=== PATIENT | male | born 1965 | race Caucasian/White ===

== ENCOUNTER 2020-05-03 13:34 | Inpatient (IN) | payer MEDICARE, SELFPAY ==
[2020-05-03] VITALS (12 sets, daily range): BP systolic 122–200; BP diastolic 65–81; PULSE 18–100; RESP 10–98; TEMP 36.6–37.6; O2SAT 73–99; BMI 37.2
--- NOTE | ~2020-05-03 | XR_ITS ---
EXAMINATION: XR hand LT min 3V INDICATION: Left hand pain TECHNIQUE: Three views of the left hand are obtained. COMPARISON: None available FINDINGS: There is soft tissue swelling of the second and third fingers. No fracture is identified. 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 Mild to moderate osteoarth ritis is also noted at the triscaphe and first carpometacarpal joints. IMPRESSION: 1. Soft tissue swelling of the second and third fingers without evidence of acute osseous abnormality . Reviewed, dictated and finalized at location B. IMPRESSION: 1. Soft tissue swelling of the second and third fingers without evidence of acu te osseous abnormality.
--- NOTE | 2020-05-03 13:50 | ED.ANIMALBIT ---
HPI - Animal Bite General Chief Complaint: Animal Bite Stated Complaint: cat bite Time Seen by Provider: 05/03/20 13:50 Source: patient Mode of arrival: ambulatory Limitations: no limitations History of Present Illness HPI narrative: Patient is a 54-year-old male with a history of hypertension, diabetes who presents for evaluation of swollen left hand. Patient reports he was bitten by a cat early on morning, this cat is a feral cat that had recently been immunized and spayed. The cat did get rabies vaccine over a week ago. Patient was letting the cat out of the car it was in, the cat then bit his left hand. Patient reports swelling and pain has been worsening since that time. Patient's primary care physician put the patient on Keflex. Patient's tetanus is not up-to-date. He reports increased pain in the second digit of the left hand. Mild numbness. There is positive redness and swelling. Patient denies fever or chills. He reports radiating pain up into his left forearm. Patient is right-hand dominant. Related Data Home Medications Medication Instructions Recorded Confirmed atorvastatin 05/03/20 buprenorphine-naloxone [Suboxone] film 05/03/20 clindamycin HCl 05/03/20 clonidine HCl 05/03/20 diltiazem HCl PO 05/03/20 finasteride mg 05/03/20 metformin mg 05/03/20 pregabalin 05/03/20 testosterone cypionate mg 05/03/20 Allergies Allergy/AdvReac Type Severity Reaction Status Date / Time Penicillins Allergy Mild Rash Verified 05/03/20 13:35 Review of Systems Review of Systems: Narrative: CONSTITUTIONAL: Denies fever CARDIOVASCULAR: Denies chest pain RESPIRATORY: Denies cough or dyspnea. GASTROINTESTINAL: Denies abdominal pain SKIN: Denies rash MUSCULOSKELETAL: Denies back pain NEUROLOGIC: Denies headache PMF Past Medical History Medical History (Updated 05/03/20 @ 14:55 by Leah Mccormick MD) Diabetes Hypertension Surgical History Surgical History (Updated 05/03/20 @ 14:17 by Leah Mccormick MD) H/O arthroscopy of left knee History of lumbar surgery Social History Social History Gender identity (if verbalized by the patient): Male Exam Narrative: Exam Narrative: GENERAL: Awake, alert, conversant HEAD: Normocephalic, atraumatic. EYES: PERRLA and EOMI. ENT: Nares clear, no rhinorrhea or epistaxis. Mucous membranes moist. NECK: Supple. CHEST: No respiratory distress, breathing even and non labored HEART: Regular rate, sinus rhythm ABDOMEN:Non distended, non tender EXTREMITIES: Decreased range of motion in the left hand due to pain. There is swelling of the left palm thenar eminence, thumb, second digit, first metacarpal area is tender, edematous, indurated, erythematous. Patient has difficulty and pain with flexion. There is no circumferential edema or erythema at this point. Radial pulses 2+. Intact sensation median, ulnar, radial nerve distribution. Several scattered scratch munoz and abrasions to the left hand. No areas of purulent discharge. SKIN: Warm, dry, no rash. NEURO:No focal deficits. Alert and oriented x3 Course Vital Signs Vital signs: Vital Signs Temperature 36.8 C 05/03/20 13:36 Pulse Rate 100 05/03/20 13:36 Respiratory Rate 16 05/03/20 13:36 Blood Pressure 200/81 H 05/03/20 13:36 Pulse Oximetry 98 05/03/20 13:36 Temperature 36.8 C 05/03/20 13:36 Pulse Rate 100 05/03/20 13:36 Respiratory Rate 16 05/03/20 13:36 Blood Pressure 200/81 H 05/03/20 13:36 Pulse Oximetry 98 05/03/20 13:36 MDM - Animal Bite MDM Narrative Medical decision making narrative: Patient presented for evaluation of cat bite to the left hand. At the time of initial assessment, ABCs are intact, vital signs notable for hypertension in which the patient has a history of. She is otherwise asymptomatic in this regard. He has significant edema, erythema, pain of the thenar eminence of the left hand, edema, erythema of the second digit, espec
[2020-05-03] MEDS: metroNIDAZOLE 500 MG/ISO 100ML 500 MG/100 ML BAG 100 MG IVPB ×2 (14:22→20:57)
[2020-05-03 14:29] LABS: Basophils Percent Auto 0.3 % (0.2-1.2); Eosinophils Absolute Auto 0.2 K/mm3 (0-0.3); Eosinophils Percent Auto 2.3 % (0-4.4); Hematocrit 40.4 % (42.0-52.0); Hemoglobin 13.8 g/dL (14.0-18.0); Immature Granulocyte Absolute 0.04 K/mm3 (0.00-0.031); Immature Granulocyte Percent A 0.4 % (0-0.5); Lymphocytes Absolute Auto 1.19 K/mm3 (0.9-3.2); Lymphocytes Percent Auto 12.2 % (18.3-44.2); Mean Corpuscular HGB Conc 34.2 g/dl (32-36); Mean Corpuscular Hemoglobin 29.1 pg (26-34); Mean Corpuscular Volume 85.1 fl (80-100); Mean Platelet Volume 10.2 fl (7.4-10.4); Monocytes Absolute Auto 1.1 K/mm3 (0.1-0.6); Monocytes Percent Auto 10.8 % (2.6-8.5); Neutrophils Absolute Auto 7.2 K/mm3 (1.3-6.7); Platelet Count Result 175 k/mm3 (150-375); Red Blood Count 4.75 M/mm3 (4.6-6.20); Red Cell Distribution Width 14.1 % (11.5-14.5); White Blood Count 9.7 K/mm3 (4.5-10.0)
[2020-05-03 14:43] LABS: Anion Gap 13.8 mmol/L (7-16); Blood Urea Nitrogen 16 mg/dL (9-20); CRP 4.2 mg/dL (<1.0); Calcium 8.9 mg/dL (8.4-10.2); Carbon Dioxide 26 mmol/L (22-30); Chloride 99 mmol/L (98-107); Estimated CRCL calculation 124 ml/min; Estimated Glomerular Filt Rate > 60; Glucose 212 mg/dL (75-110); Potassium 3.8 mmol/L (3.4-5.0); Sodium 135 mmol/L (137-145)
[2020-05-03] MEDS: MORPHINE SULFATE 4 MG/ML INJ IV PUSH (14:55)
[2020-05-03] MEDS: ONDANSETRON INJ 4 MG/2 ML VIAL IV PUSH (14:55)
[2020-05-03] MEDS: SODIUM CHLORIDE 0.9% IV 1,000 ML 999 ML IV CONT (14:56)
[2020-05-03 15:02] LABS: Erythrocyte Sedimentation Rate 16 mm/hr (0-20)
[2020-05-03] MEDS: TETANUS,DIPHTHERIA,AC PERTUSSIS ADULT (0.5 ML) BOOSTRIX IM (15:57)
--- NOTE | 2020-05-03 16:30 | PC.NURSE ---
This patient, Zachery Cruz, was admitted to 2 Medical Room 248-. Patient/family oriented to hospital policies and general routines including ID bracelet, bed and alarms, visiting hours, pain management, procedures, bathroom and other care routines, personal items, smoking policy, room service/diet, and visiting hours. Valuables list has been completed. Information on how to activate the Rapid Response Team has been discussed. Patient/Family are encouraged to report perceived risks to care and to ask questions if they do not understand what they are told or what they should do.
[2020-05-03] MEDS: SODIUM CHLORIDE 0.9% IV 1,000 ML 125 ML IV CONT (17:13)
[2020-05-03] MEDS: LACTATED RINGERS 1,000 ML 30 ML IV CONT (18:00)
--- NOTE | 2020-05-03 18:00 | WPDANESEPPF ---
Anes - Initial Pre Proc Eval Procedure: Operation Date: 05/03/20 18:30 Proposed Procedures p I&D Debride Upper Extremity Hand(Left) - Alexis Martinez MD Date/Time: 05/03/20 18:00 Surgeon: Lynn Hung MD Pre Op Diagnosis: Cellulitis Patient Data Age: 54 Gender: M Height: 6 ft Weight: 124.4 kg Last Vital Signs Temp 36.8 C 05/03/20 16:50 Pulse 75 05/03/20 16:50 Resp 17 05/03/20 16:50 BP 153/72 H 05/03/20 16:50 Pulse Ox 96 05/03/20 16:50 Allergies Allergy/AdvReac Type Severity Reaction Status Date / Time Penicillins Allergy Mild Rash Verified 05/03/20 16:48 Home Medications Medication Instructions Recorded Confirmed Type atorvastatin [Lipitor] 10 mg PO DAILY 05/03/20 05/03/20 History buprenorphine-naloxone [Suboxone] 2 film SUBLINGUAL BID 05/03/20 05/03/20 History clindamycin HCl 05/03/20 History clonidine HCl 0.1 mg PO TID 05/03/20 05/03/20 History diltiazem HCl 300 mg PO DAILY 05/03/20 05/03/20 History finasteride 5 mg PO DAILY 05/03/20 05/03/20 History metformin 1,000 mg PO BID 05/03/20 05/03/20 History pregabalin 100 mg PO BID 05/03/20 05/03/20 History testosterone cypionate 200 mg IM WEEKLY 05/03/20 05/03/20 History Laboratory Tests 05/03/20 05/03/20 14:18 14:18 WBC 9.7 K/mm3 K/mm3 (4.5-10.0) RBC 4.75 M/mm3 M/mm3 (4.6-6.20) Hgb 13.8 g/dL L g/dL (14.0-18.0) Hct 40.4 % L % (42.0-52.0) MCV 85.1 fl fl (80-100) MCH 29.1 pg pg (26-34) MCHC 34.2 g/dl g/dl (32-36) RDW 14.1 % % (11.5-14.5) Plt Count 175 k/mm3 k/mm3 (150-375) MPV 10.2 fl fl (7.4-10.4) Immature Gran % (Auto) 0.4 % % (0-0.5) Neut % (Auto) 74.0 % H % (45.5-73.1) Lymph % (Auto) 12.2 % L % (18.3-44.2) [place] % (Auto) 10.8 % H % (2.6-8.5) Eos % (Auto) 2.3 % % (0-4.4) Baso % (Auto) 0.3 % % (0.2-1.2) Lymph # (Auto) 1.19 K/mm3 K/mm3 (0.9-3.2) [place] # (Auto) 1.1 K/mm3 H K/mm3 (0.1-0.6) Eos # (Auto) 0.2 K/mm3 K/mm3 (0-0.3) Baso # (Auto) 0.0 K/mm3 K/mm3 (0.0-0.1) Abs Immat Gran (auto) 0.04 K/mm3 H K/mm3 (0.00-0.031) Absolute Neuts (auto) 7.2 K/mm3 H K/mm3 (1.3-6.7) Absolute Nucleated RBC 0.0 K/mm3 K/mm3 (0.0-0.012) Nucleated RBC % 0.0 % % (0.0-0.2) ESR 16 mm/hr mm/hr (0-20) Sodium 135 mmol/L L mmol/L (137-145) Potassium 3.8 mmol/L mmol/L (3.4-5.0) Chloride 99 mmol/L mmol/L (98-107) Carbon Dioxide 26 mmol/L mmol/L (22-30) Anion Gap 13.8 mmol/L mmol/L (7-16) BUN 16 mg/dL mg/dL (9-20) Creatinine 0.80 mg/dL mg/dL (0.7-1.3) Estim Creat Clear Calc 124 ml/min ml/min Estimated GFR > 60 (59 - ) Glucose 212 mg/dL H mg/dL (75-110) Calcium 8.9 mg/dL mg/dL (8.4-10.2) C-Reactive Protein 4.2 mg/dL H mg/dL (<1.0) Patient hx anesthesia problems: none Family hx anesthesia problems: none PMFSH Past Medical History Medical History Chronic pain syndrome Diabetes Hyperlipidemia Hypertension RUTH (obstructive sleep apnea) Surgical History Surgical History H/O arthroscopy of left knee History of lumbar surgery Family History Family History Grandparent Acute myocardial infarction Cerebrovascular accident Mother Asthma Chronic obstructive pulmonary disease Hypertension Grandparent No problems noted. Father Hypertension Social History Social History Smoking packs per day: 1 Smoking cigarettes per day: 20.0 Years smoked: 20 Smoking pack-years: 20.00 Smoking status: Former smoker Tobacco type: cigarettes Alcohol intake: never Substance use: never S
--- NOTE | 2020-05-03 18:05 | PC.NURSE ---
To OR per bed, IV intact. Report given to LION Fuentes.
--- NOTE | 2020-05-03 18:16 | WPDCN ---
Assessment and Plan Additional Plan Acute cat bite to left index and hand. Rapid onset of deep infection. To OR for I&D. HPI Data of Consult Date/Time: 05/03/20 18:16 Requesting Physician: Lynn Hung MD Primary Care Provider: Maikel Roblero, MD Consult Narrative Narrative: Zachery Cruz is a 54 year old male bitten by own cat around 40 hours ago. Hand has swelled and become very swollen and stiff and painful. Has several puncture wounds mostly on the radial hand and index finger. Flexor aspect is erythematous and very tender.Says worst site early on was at dorsal PIPJ. He is very anxious and did not seem to hear me as I described possible complications and possible length of hospital stay. Says he is not known to be allergic to PCN. Has never had it. Mother was allergic to PCN. Has been started on Rocephin and Flagyl. [facility] Past Medical History Medical History Chronic pain syndrome Diabetes Hyperlipidemia Hypertension RUTH (obstructive sleep apnea) Surgical History Surgical History H/O arthroscopy of left knee History of lumbar surgery Family History Family History Grandparent Acute myocardial infarction Cerebrovascular accident Mother Asthma Chronic obstructive pulmonary disease Hypertension Grandparent No problems noted. Father Hypertension Social History Social History Smoking packs per day: 1 Smoking cigarettes per day: 20.0 Years smoked: 20 Smoking pack-years: 20.00 Smoking status: Former smoker Tobacco type: cigarettes Alcohol intake: never Substance use: never Substance use type: does not use Gender identity (if verbalized by the patient): Male Spiritual care concerns: No Meds Home Medications and Allergies Home Medications Medication Instructions Recorded Confirmed Type atorvastatin [Lipitor] 10 mg PO DAILY 05/03/20 05/03/20 History buprenorphine-naloxone [Suboxone] 2 film SUBLINGUAL BID 05/03/20 05/03/20 History clindamycin HCl 05/03/20 History clonidine HCl 0.1 mg PO TID 05/03/20 05/03/20 History diltiazem HCl 300 mg PO DAILY 05/03/20 05/03/20 History finasteride 5 mg PO DAILY 05/03/20 05/03/20 History metformin 1,000 mg PO BID 05/03/20 05/03/20 History pregabalin 100 mg PO BID 05/03/20 05/03/20 History testosterone cypionate 200 mg IM WEEKLY 05/03/20 05/03/20 History Allergies Allergy/AdvReac Type Severity Reaction Status Date / Time Penicillins Allergy Mild Rash Verified 05/03/20 16:48 Vital Signs Vital Signs - 24 hr 05/03/20 13:36 05/03/20 16:00 05/03/20 16:50 Temperature 36.8 C 36.8 C Pulse Rate 100 66 75 Respiratory Rate 16 17 17 Blood Pressure 200/81 H 155/80 H 153/72 H Pulse Oximetry 98 97 96 05/03/20 18:00 Temperature 37.6 C H Pulse Rate 81 Respiratory Rate 16 Blood Pressure 137/75 Pulse Oximetry 96 Results Labs CBC & Chem 7: 05/03/20 14:18 05/03/20 14:18 Labs: Short CBC 05/03/20 Range/Units 14:18 WBC 9.7 (4.5-10.0) K/mm3 Hgb 13.8 L (14.0-18.0) g/dL Hct 40.4 L (42.0-52.0) % Plt Count 175 (150-375) k/mm3 [facility] 05/03/20 14:18 Sodium 135 L Potassium 3.8 Chloride 99 Carbon Dioxide 26 BUN 16 Creatinine 0.80 Glucose 212 H Calcium 8.9
--- NOTE | 2020-05-03 18:34 | PC.NURSE ---
On 05/03/20, the license-pending RN, Cathryn Crisostomo, provided care and completed [employer] documentation on this patient. I have reviewed the license-pending RN's documentation and agree with the findings.
[2020-05-03] MEDS: LIDO 1%/EPINEPHRINE 1:100,000 20 ML VIAL INFILTRATE (18:39)
--- NOTE | 2020-05-03 19:17 | PM.OP ---
Procedure Note - Brief Procedure Note - Brief Date of procedure: 05/03/20 Pre-op diagnosis: Cellulitis Post-op diagnosis: other (Flexor septic tenosynovitis left index finger) Procedure performed: I&D flexor tenosynovitis left index finger. Anesthesia: GETA Surgeon: Alexis Martinez MD Estimated blood loss (mL): 3 Tourniquet time (min): 20 Drains: No Packing: Yes (5 x 1 inch.) Pathology: yes (Aerobic and anaerobic cultures.) Complications: No immediate complications Condition: stable Disposition: PACU
--- NOTE | 2020-05-03 19:23 | P.OP_ITS ---
Procedure Note - Detailed Date of procedure: 05/03/20 Pre-op diagnosis: Cellulitis Post-op diagnosis: other ( septic flexor tenosynovitis left index finger) Procedure performed: drainage of septic flexor tenosynovitis left index finger Description of procedure: The patient's hand was marked in the holding area. He had just been admitted to the hospital on the [facility] floor after being seen in the ER with a swollen left hand. This stems from cat bites sustained approximately 30 hours prior. His hand had become swollen and he was unable to flex the index finger.There were multiple puncture sites on the index and middle finger . This gentleman is diabetic and has hypertension but HAs no recent tobacco use. He stated that he was allergic to penicillin and he was given Rocephin and Flagyl in the emergency room. He later stated to me that he has never had Penicillin, that it was his mother who was allergic to penicillin. He was very anxious in the holding area when I 1st met him. I tried to explain to him possible complications for this type of injury and the likelihood that he would spend a few days in the hospital on may need to come back to surgery. It seemed to me that he comprehend did very little of that. He was taken to the operating room where he was placed supine on the operating table. A time-out was held and confirmed. He was given general anesthesia. The hand and forearm were prepped and draped in the usual fashion. The tourniquet was inflated to 250 mmHg. No local anesthetic was utilized. We examined the 2 sites that he complained of the most which were the index proximal interphalangeal and the index metacarpophalangeal joint from the dorsal aspect. Both the sites were incised longitudinally and the soft tissue and the extensor tendon identified. We found no pus in the sites. His other major complaint was that he could not flex his finger. We supinated the hand and made an incision diagonally crossing the proximal interphalangeal joint passing through 1 of the bites. Dissection to the flexor tendon sheath and just into the sheath at the C3 naz revealed cloudy fluid. A 2nd incision was made diagonally across the metacarpophalangeal flexion crease. There was no cloudy fluid identified there the flexor tendon and the sheath appeared to be in good shape. Cultures for aerobes and anaerobes were taken from the more distal incision We irrigated this with bacitracin solution. We were then able to insert a 16 gauge Angiocath into the flexor tendon sheath and irrigated copiously through that. We did not irrigate proximal to the A1 naz. We did irrigate distally beneath the A4 naz.Each of these wounds was dressed with a strip of quarter- inch iodoform gauze, a bulky bandage covered the those. The patient was discharged from the operating room in stable condition Surgeon: Alexis Martinez MD
--- NOTE | 2020-05-03 19:44 | SUR.PHASEI ---
1946 [facility] FAXED FLOOR NOTIFIED
--- NOTE | 2020-05-03 20:25 | PC.NURSE ---
PT RETURNED FROM OR. A&OX 3 DRESSING INTACT TO LEFT HAND
[2020-05-03] MEDS: KETOROLAC 15 MG/ML VIAL (*BKC) IV PUSH (20:50)
[2020-05-03] MEDS: oxyCODONE/ACETAMINOPHEN 5-325 MG TABLET 1 TABLET PO (22:06)
[2020-05-04 03:03] VITALS: BP 139/71; PULSE 16; RESP 97; TEMP 36.8; O2SAT 65
[2020-05-04] MEDS: metroNIDAZOLE 500 MG/ISO 100ML 500 MG/100 ML BAG 100 MG IVPB ×2 (03:03→08:20)
[2020-05-04] MEDS: oxyCODONE/ACETAMINOPHEN 5-325 MG TABLET 1 TABLET PO ×4 (05:06→20:27)
[2020-05-04 05:25] LABS: Basophils Percent Auto 0.3 % (0.2-1.2); Eosinophils Absolute Auto 0.1 K/mm3 (0-0.3); Eosinophils Percent Auto 0.9 % (0-4.4); Hematocrit 37.8 % (42.0-52.0); Hemoglobin 12.6 g/dL (14.0-18.0); Immature Granulocyte Absolute 0.03 K/mm3 (0.00-0.031); Immature Granulocyte Percent A 0.3 % (0-0.5); Lymphocytes Absolute Auto 1.58 K/mm3 (0.9-3.2); Lymphocytes Percent Auto 16.7 % (18.3-44.2); Mean Corpuscular HGB Conc 33.3 g/dl (32-36); Mean Corpuscular Hemoglobin 28.8 pg (26-34); Mean Corpuscular Volume 86.3 fl (80-100); Mean Platelet Volume 10.3 fl (7.4-10.4); Monocytes Absolute Auto 1.3 K/mm3 (0.1-0.6); Monocytes Percent Auto 13.2 % (2.6-8.5); Neutrophils Absolute Auto 6.5 K/mm3 (1.3-6.7); Neutrophils Percent Auto 68.6 % (45.5-73.1); Platelet Count Result 157 k/mm3 (150-375); Red Blood Count 4.38 M/mm3 (4.6-6.20); Red Cell Distribution Width 14.4 % (11.5-14.5); White Blood Count 9.5 K/mm3 (4.5-10.0)
[2020-05-04 05:39] LABS: Anion Gap 8.7 mmol/L (7-16); Blood Urea Nitrogen 14 mg/dL (9-20); Calcium 8.3 mg/dL (8.4-10.2); Carbon Dioxide 29 mmol/L (22-30); Chloride 101 mmol/L (98-107); Estimated CRCL calculation 113 ml/min; Estimated Glomerular Filt Rate > 60; Glucose 124 mg/dL (75-110); Potassium 3.7 mmol/L (3.4-5.0); Sodium 135 mmol/L (137-145)
[2020-05-04 06:30] VITALS: BP 146/69; PULSE 73; RESP 18; TEMP 36.7; O2SAT 95
[2020-05-04 07:40] LABS: Glucose Point of Care 118 (65-105)
[2020-05-04 07:40] LABS: Glucose Point of Care 98 (65-105)
--- NOTE | 2020-05-04 07:55 | P.PNAN_ITS ---
Anes - Prog Note Post-Op Date/Time: 05/04/20 07:55 Cardiovascular status: normal Respiratory status: normal Airway patency: baseline Mental status: baseline Post-Op hydration status: normal Vital Signs: Last Vital Signs Temp 36.7 C 05/04/20 06:30 Pulse 73 05/04/20 06:30 Resp 18 05/04/20 06:30 BP 146/69 H 05/04/20 06:30 Pulse Ox 95 05/04/20 06:30 I/O: Intake & Output 05/03/20 05/03/20 05/04/20 15:59 23:59 07:59 Intake Total 1150 1200 650 Output Total 300 1550 Balance 1150 900 -900 Laboratory Tests 05/04/20 04:59 05/04/20 04:59 05/03/20 05/03/20 05/03/20 14:18 14:18 18:01 WBC 9.7 RBC 4.75 Hgb 13.8 L Hct 40.4 L MCV 85.1 MCH 29.1 MCHC 34.2 RDW 14.1 Plt Count 175 MPV 10.2 Immature Gran % (Auto) 0.4 Neut % (Auto) 74.0 H Lymph % (Auto) 12.2 L [place] % (Auto) 10.8 H Eos % (Auto) 2.3 Baso % (Auto) 0.3 Lymph # (Auto) 1.19 [place] # (Auto) 1.1 H Eos # (Auto) 0.2 Baso # (Auto) 0.0 Abs Immat Gran (auto) 0.04 H Absolute Neuts (auto) 7.2 H Absolute Nucleated RBC 0.0 Nucleated RBC % 0.0 ESR 16 Sodium 135 L Potassium 3.8 Chloride 99 Carbon Dioxide 26 Anion Gap 13.8 BUN 16 Creatinine 0.80 Estim Creat Clear Calc 124 Estimated GFR > 60 Glucose 212 H POC Capillary Glucose 98 Calcium 8.9 C-Reactive Protein 4.2 H 05/03/20 05/04/20 05/04/20 19:18 04:59 04:59 WBC 9.5 RBC 4.38 L Hgb 12.6 L Hct 37.8 L MCV 86.3 MCH 28.8 MCHC 33.3 RDW 14.4 Plt Count 157 MPV 10.3 Immature Gran % (Auto) 0.3 Neut % (Auto) 68.6 Lymph % (Auto) 16.7 L [place] % (Auto) 13.2 H Eos % (Auto) 0.9 Baso % (Auto) 0.3 Lymph # (Auto) 1.58 [place] # (Auto) 1.3 H Eos # (Auto) 0.1 Baso # (Auto) 0.0 Abs Immat Gran (auto) 0.03 Absolute Neuts (auto) 6.5 Absolute Nucleated RBC 0.0 Nucleated RBC % 0.0 ESR Sodium 135 L Potassium 3.7 Chloride 101 Carbon Dioxide 29 Anion Gap 8.7 BUN 14 Creatinine 0.90 Estim Creat Clear Calc 113 Estimated GFR > 60 Glucose 124 H POC Capillary Glucose 118 H Calcium 8.3 L C-Reactive Protein Post-procedural complaints: none Patient Feedback: Patient satisfied with anesthetic care.
[2020-05-04 08:05] LABS: Glucose Point of Care 131 (65-105)
[2020-05-04] MEDS: MORPHINE SULFATE 4 MG/ML INJ IV PUSH ×4 (08:12→23:07)
[2020-05-04] MEDS: metFORMIN HCL 500 MG TABLET 1000 MG PO ×2 (08:25→18:13)
[2020-05-04] MEDS: cloNIDine HCL 0.1 MG TABLET PO ×3 (08:25→18:13)
[2020-05-04] MEDS: ATORVASTATIN 10 MG TABLET PO (08:26)
[2020-05-04] MEDS: FINASTERIDE 5 MG TABLET PO (08:26)
[2020-05-04] MEDS: PREGABALIN 50 MG CAPSULE 100 MG PO ×2 (08:26→18:14)
--- NOTE | 2020-05-04 10:00 | PM.IMHP ---
H&P: HPI History of Present Illness Chief complaint: Cellulitis left hand Narrative: Date of Service 05/04/20 [id number] The supervising physician for this history and physical is Dr Luis Hernandez. Mr. Cruz is a 54yo M with history of non insulin-dependent type 2 diabetes mellitus, hypertension, obstructive sleep apnea, and chronic pain who presented to the ED for evaluation of left hand swelling pain and swelling after he sustained cat bite on early Thursday morning. He reports he has been feeding a stray cat that does not live in his home and he had taken the cat to the vet to get neutered. The cat bit him multiple times on his left hand when he attempted to take the cat out of a cage on returning home. He developed left hand pain and swelling, worst in first 2 fingers, which worsened over the last day and he was unable to move his fingers. PCP prescribed him cephalexin as an outpatient. Pain worsened and he presented to the ED yesterday. He was taken to the OR by Dr Martinez late yesterday for drainage of septic flexor tenosynovitis. Currently he is on IV ceftriaxone and metronidazole. On arrival he mentioned an allergy to penicillin, but on further questioning he describes that his mother was allergic to penicillin and that he was always told he could be allergic to penicillin too and has not actually ever taken it. At this time, wound cultures from the OR are pending. Patient is admitted for management of septic flexor tenosynovitis and I suspect he will require at least a 2 midnight stay for same. Review of Systems Review of Systems: Narrative: At present, he describes moderate throbbing pain to left hand which is dressed in a gauze dressing. He denies chest pain, shortness of breath, palpitations, or recent sick contacts. He denies headaches, dizziness, nausea, or vomiting. No diarrhea, hematochezia, or melena. Twelve systems were reviewed with pertinent positives and negatives as per HPI. Except as documented, all other systems were reviewed and are negative. [facility] Past Medical History Medical History (Updated 05/04/20 @ 11:23 by Kiana Madrigal PA-C) Chronic pain syndrome Follows with pain management and takes suboxone. Diabetes Hyperlipidemia Hypertension RUTH (obstructive sleep apnea) Uses CPAP Surgical History Surgical History (Updated 05/04/20 @ 11:09 by Kiana Madrigal PA-C) H/O arthroscopy of left knee [facility] knees History of lumbar surgery 2007; fusions at 3 levels Family History Family History Grandparent Acute myocardial infarction Cerebrovascular accident Mother Asthma Chronic obstructive pulmonary disease Hypertension Grandparent No problems noted. Father Hypertension Social History Social History (Updated 05/04/20 @ 11:12 by Kiana Madrigal PA-C) Social History: Mr. Cruz lives at home in [place] with his children and . He is on disability now due to issues with his back, but previously worked for [employer] and [email or web address] and has done some work in real [employer]. He used to drink alcohol but does not drink anymore. He reports smoking about 1 ppd of cigarettes x 25 years and quit smoking in 2000. Denies other substance use. His PCP is Dr Maikel Roblero. He designates his , Christianne, to be his surrogate decision maker and he is full code status. Smoking packs per day: 1 Smoking cigarettes per day: 20.0 Years smoked: 25 Smoking pack-years: 25.00 Smoking status: Former smoker Tobacco type: cigarettes Alcohol intake: never Substance use: never Substance use type: does not use Living arrangements: with family Gender identity (if verbalized by the patient): Male Spiritual care concerns: No Meds Home Medications and Allergies Home Medications Medication Instructions Recorded Confirmed Type atorvastatin [Lipitor] 10 mg PO DAILY 05/03/20 05/03/20 History buprenorphine-naloxone [Suboxone] 2 eran
[2020-05-04 10:37] VITALS: BP 130/57; PULSE 81; RESP 20; TEMP 37.3; O2SAT 99
[2020-05-04 11:30] LABS: Glucose Point of Care 185 (65-105)
--- NOTE | 2020-05-04 12:33 | WPDPN ---
Progress Note: A&P Additional Plan Continue Iodoform radha another day. Continue current antibiotics. Pt repeats he has never had penicillin. Exam Narrative: Exam Narrative: Overall less red. Still some edema, more concerning on the palmar side. Minimal tenderness to dressing removal from the dorsum Radha remain. Very tender to passive extension of the index and unable to flex the index. No purulent drainage. No blistering. No cyanosis. No tenderness in the wrist or forearm. Other digits move relatively freely. Ser gluc is improved. WBC 9.5 Cx pending Objective Data Vital Signs Vital Signs: Vital Signs - 24 hr 05/03/20 13:36 05/03/20 16:00 05/03/20 16:50 Temperature 36.8 C 36.8 C Pulse Rate 100 66 75 Respiratory Rate 16 17 17 Blood Pressure 200/81 H 155/80 H 153/72 H Pulse Oximetry 98 97 96 05/03/20 18:00 05/03/20 19:15 05/03/20 19:30 Temperature 37.6 C H 36.7 C Pulse Rate 81 72 65 Respiratory Rate 16 10 L 12 Blood Pressure 137/75 122/70 136/66 Pulse Oximetry 96 98 99 05/03/20 19:45 05/03/20 20:00 05/03/20 20:25 Temperature 36.8 C Pulse Rate 60 59 L 68 Respiratory Rate 14 10 L 18 Blood Pressure 132/70 135/78 138/65 Pulse Oximetry 94 93 95 05/03/20 20:40 05/03/20 21:10 05/03/20 22:10 Temperature 36.7 C 36.6 C 36.7 C Pulse Rate 64 70 18 L Respiratory Rate 20 18 98 H Blood Pressure 143/67 H 141/67 H 142/73 H Pulse Oximetry 96 97 73 L 05/04/20 03:03 05/04/20 06:30 05/04/20 10:37 Temperature 36.8 C 36.7 C 37.3 C Pulse Rate 16 L 73 81 Respiratory Rate 97 H 18 20 Blood Pressure 139/71 146/69 H 130/57 L Pulse Oximetry 65 L 95 99 Intake/Output Intake/Output: Intake & Output 05/01/20 05/02/20 05/03/20 05/04/20 23:59 23:59 23:59 23:59 Intake Total 2350 1110 Output Total 300 1550 Balance 2049 -748 Meds/Results Medications: Active Medications Generic Name Dose Route Start Last Admin Trade Name Freq PRN Reason Stop Dose Admin Atorvastatin Calcium 10 mg 05/04/20 09:00 05/04/20 08:26 Lipitor PO 10 mg DAILY DENG Administration Clonidine HCl 0.1 mg 05/04/20 09:00 05/04/20 08:25 Catapres PO 0.1 mg TID DENG Administration Dextrose 12.5 gm 05/04/20 02:31 Dextrose 50% Syringe IV PUSH PRN PRN Hypoglycemia Protocol Diltiazem HCl 300 mg 05/04/20 09:00 05/04/20 08:26 Cardizem Cd PO 300 mg DAILY DENG Administration Finasteride 5 mg 05/04/20 09:00 05/04/20 08:26 Proscar PO 5 mg DAILY DENG Administration Glucagon 1 mg 05/04/20 02:31 Glucagon For Inj IM PRN PRN Hypoglycemia Protocol Glucose 15 gm 05/04/20 02:31 Glutose 15 PO PRN PRN Hypoglycemia Protocol Acetaminophen 1,000 mg in 100 mls @ 400 mls/hr 05/03/20 15:20 05/03/20 17:28 Ofirmev 1,000 Mg Ivpb IVPB 05/04/20 15:21 Infused Q6H PRN Infusion Mild Pain (1-3) or Fever Dextrose 1,000 mls @ 100 mls/hr 05/04/20 02:31 Dextrose 5% 1,000 Ml IVPB PRN PRN Hypoglycemia Protocol Piperacillin/Tazobactam/Dextrose 3.375 gm in 50 mls @ 100 mls/hr 05/04/20 12:00 Zosyn 3.375 Gm/D5w 50ml Pm IVPB Q6H [facility] Insulin Aspart 3 - 6 units 05/04/20 08:00 05/04/20 08:17 Novolog SUB-Q Not Given TID[facility] Protocol Metformin HCl 1,000 mg 05/04/20 09:00 05/04/20 08:25 Glucophage PO 1,000 mg BID DENG Administration Morphine Sulfate 4 mg 05/03/20 15:20 05/04/20 08:12 Morphine Sulfate Inj IV PUSH 4 mg Q2H PRN Administration Pain Rated 7-10 Ondansetron HCl 4 mg 05/03/20 15:20 Zofran Inj IV PUSH Q4H PRN Nausea Ondansetron HCl 4 mg 05/03/20 18:04 Zofran Inj IV PUSH ONCE PRN Nausea Oxycodone/Acetaminophen 1 tablet 05/03/20 20:16 05/04/20 10:48 Percocet 5-325 Mg PO 1 tablet Q4H PRN Administration Pain Rated 4-6 Pregabalin 100 mg 05/04/20 09:00 05/04/20 08:26 Lyrica PO 100 mg BID DENG Administration
[2020-05-04 14:00] VITALS: BP 146/65; PULSE 72; RESP 14; TEMP 37.3; O2SAT 93
[2020-05-04 18:00] VITALS: BP 154/67; PULSE 72; RESP 18; TEMP 37.3; O2SAT 96
[2020-05-04 18:13] LABS: Glucose Point of Care 169 (65-105)
[2020-05-04 22:00] VITALS: BP 127/56; PULSE 72; RESP 20; TEMP 36.7; O2SAT 98
[2020-05-04 23:30] LABS: Glucose Point of Care 168 (65-105)
[2020-05-05 02:00] VITALS: BP 135/60; PULSE 64; RESP 20; TEMP 36.9; O2SAT 98
[2020-05-05] MEDS: oxyCODONE/ACETAMINOPHEN 5-325 MG TABLET 1 TABLET PO ×4 (05:05→23:45)
[2020-05-05 05:42] LABS: Basophils Percent Auto 0.4 % (0.2-1.2); Eosinophils Absolute Auto 0.2 K/mm3 (0-0.3); Eosinophils Percent Auto 2.2 % (0-4.4); Hematocrit 36.9 % (42.0-52.0); Hemoglobin 12.2 g/dL (14.0-18.0); Immature Granulocyte Absolute 0.04 K/mm3 (0.00-0.031); Immature Granulocyte Percent A 0.4 % (0-0.5); Lymphocytes Absolute Auto 2.69 K/mm3 (0.9-3.2); Lymphocytes Percent Auto 26.2 % (18.3-44.2); Mean Corpuscular HGB Conc 33.1 g/dl (32-36); Mean Corpuscular Hemoglobin 28.6 pg (26-34); Mean Corpuscular Volume 86.6 fl (80-100); Mean Platelet Volume 10.6 fl (7.4-10.4); Monocytes Absolute Auto 1.4 K/mm3 (0.1-0.6); Neutrophils Absolute Auto 5.8 K/mm3 (1.3-6.7); Neutrophils Percent Auto 56.8 % (45.5-73.1); Platelet Count Result 160 k/mm3 (150-375); Red Blood Count 4.26 M/mm3 (4.6-6.20); Red Cell Distribution Width 14.3 % (11.5-14.5); White Blood Count 10.3 K/mm3 (4.5-10.0)
[2020-05-05 05:52] LABS: Anion Gap 9.9 mmol/L (7-16); Blood Urea Nitrogen 12 mg/dL (9-20); Calcium 8.5 mg/dL (8.4-10.2); Carbon Dioxide 32 mmol/L (22-30); Chloride 99 mmol/L (98-107); Estimated CRCL calculation 113 ml/min; Estimated Glomerular Filt Rate > 60; Glucose 141 mg/dL (75-110); Potassium 3.9 mmol/L (3.4-5.0); Sodium 137 mmol/L (137-145)
[2020-05-05 06:00] VITALS: BP 128/58; PULSE 72; RESP 20; TEMP 36.9; O2SAT 98
[2020-05-05] MEDS: MORPHINE SULFATE 4 MG/ML INJ IV PUSH ×5 (06:18→20:57)
[2020-05-05 07:40] LABS: Glucose Point of Care 204 (65-105)
[2020-05-05] MEDS: FINASTERIDE 5 MG TABLET PO (09:24)
[2020-05-05] MEDS: cloNIDine HCL 0.1 MG TABLET PO ×3 (09:24→16:48)
[2020-05-05] MEDS: PREGABALIN 50 MG CAPSULE 100 MG PO ×2 (09:24→16:48)
[2020-05-05] MEDS: ATORVASTATIN 10 MG TABLET PO (09:25)
[2020-05-05] MEDS: metFORMIN HCL 500 MG TABLET 1000 MG PO ×2 (09:25→16:48)
--- NOTE | 2020-05-05 09:31 | PM.IMPN ---
Progress Note: A&P Assessment and Plan (1) Cellulitis of hand, left: Code(s): L03.114 - Cellulitis of left upper limb Status: Acute Assessment and Plan: Secondary to acute cat bite. He is POD#2 s/ p drainage of septic flexor tenosynovitis left index finger by Dr. Martinez 05/03. Appreciate Dr. Martinez's recommendations - noted his plan for NPO after midnight and possible surgical reevaluation in AM. Initially started on IV Rocephin and Flagyl. Since he now declines penicillin allergy, switched to IV Zosyn 05/04. Wound culture growing Pasteurella multocida; continue IV Zosyn. Blood cultures obtained after antibiotics were initiated and are pending. (2) Cat bite: Qualifiers: Encounter type: initial encounter Qualified Code(s): W55.01XA - Bitten by cat, initial encounter Code(s): W55.01XA - Bitten by cat, initial encounter Status: Acute Assessment and Plan: See above. (3) Diabetes: Onset Date: ~04/2020 Code(s): E11.9 - Type 2 diabetes mellitus without complications Status: Chronic Assessment and Plan: Continue his home metformin. Montior with accu-cheks and cover with SSI. Check A1c in AM. Reports he checks his blood sugars multiple times per week but not every day. (4) Hypertension: Code(s): I10 - Essential (primary) hypertension Status: Chronic Assessment and Plan: Continue his home regimen with diltiazem and clonidine. Monitor BPs and adjust treatment as needed. (5) Chronic pain syndrome: Code(s): G89.4 - Chronic pain syndrome Status: Chronic Assessment and Plan: Issues after back surgery in 2007; follows with pain management and takes suboxone and lyrica. Hold suboxone while hospitalized. He remains on morphine and Percocet today for pain control. (6) RUTH (obstructive sleep apnea): Code(s): G47.33 - Obstructive sleep apnea (adult) (pediatric) Status: Chronic Assessment and Plan: CPAP. Subjective Date/time seen: 05/05/20 09:00 Interval history: Mr. Cruz is a 54yo M admitted for cellulitis left hand/septic flexor tenosynovitis to left index secondary to acute cat bite now POD#2 s/p drainage. He is feeling okay today, pain is decently controlled at this time but great difficulty with any passive range of motion of his left fingers. He mostly experiences throbbing pain. He slept okay last night wearing the CPAP and denies any chest pain, shortness of breath, or calf tenderness. He has tolerated some breakfast without nausea, vomiting, or abdominal pain. Review of Systems Review of Systems: Narrative: Twelve systems were reviewed with pertinent positives and negatives as per HPI. Exam Narrative: Exam Narrative: General: Well-developed, well-nourished male resting comfortably in no acute distress. HEENT: Normocephalic, EOMI, oral mucosa moist. Neck: Supple. Chest: Lungs clear to auscultation all noriega. Respirations are even and nonlabored. Tolerating room air. Heart: Heart rate and rhythm regular. Abdomen: Soft, nontender, nondistended, bowel sounds present. Ventral hernia palpated without pain. Extremities: Digits on the left hand are bit edematous, very tender to touch; difficulty and pain with any range of motion left fingers. Left 1st and 2nd digits/hand are wrapped in a gauze dressing with scant yellow drainage. Radial pulses are palpable bilaterally. Neurologic: No focal neurological deficits appreciated. Speech is clear. Objective Data Vital Signs Vital Signs: Last Vital Signs Temp 96.5 F L 05/05/20 09:45 Pulse 68 05/05/20 09:45 Resp 18 05/05/20 09:45 BP 152/64 H 05/05/20 09:45 Pulse Ox 99 05/05/20 09:45 Intake/Output Intake/Output: Intake & Output 05/02/20 07
[2020-05-05 09:45] VITALS: BP 152/64; PULSE 68; RESP 18; TEMP 35.8; O2SAT 99
[2020-05-05 11:27] LABS: Glucose Point of Care 155 (65-105)
--- NOTE | 2020-05-05 12:59 | WPDPN ---
Progress Note: A&P Assessment and Plan (1) Cellulitis of hand, left: Code(s): L03.114 - Cellulitis of left upper limb Status: Acute (2) Cat bite: Qualifiers: Encounter type: initial encounter Qualified Code(s): W55.01XA - Bitten by cat, initial encounter Code(s): W55.01XA - Bitten by cat, initial encounter Status: Acute (3) Diabetes: Onset Date: ~04/2020 Code(s): E11.9 - Type 2 diabetes mellitus without complications Status: Chronic (4) Abscess of tendon of hand: Code(s): M65.049 - Abscess of tendon sheath, unspecified hand Status: Acute Assessment and Plan: Pain persists. May have septic PIPJ. Remains on antibiotics. Additional Plan NPO after MN and reevaluate in the early AM Anesthesia and [employer] notified. Could follow a 7:30 case. Exam Narrative: Exam Narrative: Redressed. All 5 thanh removed. Pt complains of pain with any movement of the PIPJ. Erythema is minimal. No purulent drainage. Swelling moderate. Not tender in the palm or distal pad. Tolerates passive wrist flexion and extension. Greatest tenderness is between the two surgical wounds. Not tender to lateral compression except at the PIPJ. WBC 10.3 POC remains greater than 140 Wound cultures pending. Objective Data Vital Signs Vital Signs: Vital Signs - 24 hr 05/04/20 14:00 05/04/20 18:00 05/04/20 22:00 Temperature 37.3 C 37.3 C 36.7 C Pulse Rate 72 72 72 Respiratory Rate 14 18 20 Blood Pressure 146/65 H 154/67 H 127/56 L Pulse Oximetry 93 96 98 05/05/20 02:00 05/05/20 06:00 05/05/20 09:45 Temperature 36.9 C 36.9 C 35.8 C L Pulse Rate 64 72 68 Respiratory Rate 20 20 18 Blood Pressure 135/60 128/58 L 152/64 H Pulse Oximetry 98 98 99 Intake/Output Intake/Output: Intake & Output 05/02/20 05/03/20 05/04/20 05/05/20 23:59 23:59 23:59 23:59 Intake Total 2350 2620 1170 Output Total 300 2150 800 Balance 2050 470 370 Meds/Results Medications: Active Medications Generic Name Dose Route Start Last Admin Trade Name Freq PRN Reason Stop Dose Admin Atorvastatin Calcium 10 mg 05/04/20 09:00 05/05/20 09:25 Lipitor PO 10 mg DAILY DENG Administration Clonidine HCl 0.1 mg 05/04/20 09:00 05/05/20 12:25 Catapres PO 0.1 mg TID DENG Administration Dextrose 12.5 gm 05/04/20 02:31 Dextrose 50% Syringe IV PUSH PRN PRN Hypoglycemia Protocol Diltiazem HCl 300 mg 05/04/20 09:00 05/05/20 09:25 Cardizem Cd PO 300 mg DAILY DENG Administration Finasteride 5 mg 05/04/20 09:00 05/05/20 09:24 Proscar PO 5 mg DAILY DENG Administration Glucagon 1 mg 05/04/20 02:31 Glucagon For Inj IM PRN PRN Hypoglycemia Protocol Glucose 15 gm 05/04/20 02:31 Glutose 15 PO PRN PRN Hypoglycemia Protocol Dextrose 1,000 mls @ 100 mls/hr 05/04/20 02:31 Dextrose 5% 1,000 Ml IVPB PRN PRN Hypoglycemia Protocol Piperacillin/Tazobactam/Dextrose 3.375 gm in 50 mls @ 100 mls/hr 05/04/20 12:00 05/05/20 12:25 Zosyn 3.375 Gm/D5w 50ml Pm IVPB 100 mls/hr Q6H DENG Administration Insulin Aspart 3 - 6 units 05/04/20 08:00 05/05/20 12:25 Novolog SUB-Q Not Given TIDWM [facility] Protocol Metformin HCl 1,000 mg 05/04/20 09:00 05/05/20 09:25 Glucophage PO 1,000 mg BID DENG Administration Morphine Sulfate 4 mg 05/03/20 15:20 05/05/20 12:38 Morphine Sulfate Inj IV PUSH 4 mg Q2H PRN Administration Pain Rated 7-10 Ondansetron HCl 4 mg 05/03/20 15:20 Zofran Inj IV PUSH Q4H PRN Nausea Ondansetron HCl 4 mg 05/03/20 18:04 Zofran Inj IV PUSH ONCE PRN Nausea Oxycodone/Acetaminophen 1 tablet 05/03/20 20:16 05/05/20 09:25 Percocet 5-325 Mg PO 1 tablet Q4H PRN Administration Pain Rated 4-6 Pregabalin 100 mg 05/04/20 09:00 05/05/20 09:24 Lyrica PO 100 mg BID
[2020-05-05 14:00] VITALS: BP 121/70; PULSE 69; RESP 18; TEMP 36.7; O2SAT 96
[2020-05-05 16:27] LABS: Glucose Point of Care 281 (65-105)
[2020-05-05 18:00] VITALS: BP 127/69; PULSE 70; RESP 18; TEMP 36.6; O2SAT 99
[2020-05-05 21:09] LABS: Glucose Point of Care 151 (65-105)
[2020-05-05 21:56] VITALS: BP 126/62; PULSE 68; RESP 16; TEMP 37.2; O2SAT 97
[2020-05-06] VITALS (17 sets, daily range): BP systolic 107–189; BP diastolic 57–101; PULSE 60–79; RESP 12–22; TEMP 36.3–37.1; O2SAT 94–100
[2020-05-06] MEDS: MORPHINE SULFATE 4 MG/ML INJ IV PUSH ×5 (04:52→21:20)
[2020-05-06 05:06] LABS: Basophils Percent Auto 0.3 % (0.2-1.2); Eosinophils Absolute Auto 0.3 K/mm3 (0-0.3); Eosinophils Percent Auto 3.5 % (0-4.4); Hematocrit 36.4 % (42.0-52.0); Hemoglobin 12.3 g/dL (14.0-18.0); Immature Granulocyte Absolute 0.03 K/mm3 (0.00-0.031); Immature Granulocyte Percent A 0.3 % (0-0.5); Lymphocytes Absolute Auto 2.52 K/mm3 (0.9-3.2); Lymphocytes Percent Auto 27.8 % (18.3-44.2); Mean Corpuscular HGB Conc 33.8 g/dl (32-36); Mean Corpuscular Hemoglobin 29.3 pg (26-34); Mean Corpuscular Volume 86.7 fl (80-100); Mean Platelet Volume 10.8 fl (7.4-10.4); Monocytes Absolute Auto 1.3 K/mm3 (0.1-0.6); Monocytes Percent Auto 14.1 % (2.6-8.5); Neutrophils Absolute Auto 4.9 K/mm3 (1.3-6.7); Platelet Count Result 176 k/mm3 (150-375); Red Cell Distribution Width 14.2 % (11.5-14.5); White Blood Count 9.1 K/mm3 (4.5-10.0)
[2020-05-06 05:41] LABS: Alanine Aminotransferase 49 U/L (4-50); Albumin Level 3.8 g/dL (3.5-5.1); Alkaline Phosphatase 55 U/L (38-126); Anion Gap 11.1 mmol/L (7-16); Aspartate Amino Transferase 26 U/L (17-59); Bilirubin,Total 0.6 mg/dL (0.2-1.3); Blood Urea Nitrogen 11 mg/dL (9-20); Calcium 8.7 mg/dL (8.4-10.2); Carbon Dioxide 30 mmol/L (22-30); Chloride 100 mmol/L (98-107); Estimated CRCL calculation 113 ml/min; Estimated Glomerular Filt Rate > 60; Glucose 128 mg/dL (75-110); Potassium 4.1 mmol/L (3.4-5.0); Sodium 137 mmol/L (137-145)
[2020-05-06 05:45] LABS: Hemoglobin A1C 7.2 % (<5.7)
[2020-05-06 06:26] LABS: Glucose Point of Care 130 (65-105)
--- NOTE | 2020-05-06 07:20 | WPDANESEPPF ---
Anes - Initial Pre Proc Eval Procedure: Operation Date: 05/03/20 18:30 Proposed Procedures p I&D Debride Upper Extremity Hand(Left) - Alexis Martinez MD Operation Date: 05/06/20 09:30 Proposed Procedures p I&D Debride Upper Extremity - Alexis Martinez MD Date/Time: 05/06/20 07:20 Surgeon: NIRALI Reed Pre Op Diagnosis: Cellulitis left hand Patient Data Age: 54 Gender: M Height: 1.83 m Weight: 124.4 kg Last Vital Signs Temp 36.8 C 05/06/20 05:45 Pulse 79 05/06/20 05:45 Resp 16 05/06/20 05:45 BP 130/76 05/06/20 05:45 Pulse Ox 97 05/06/20 05:45 Allergies Allergy/AdvReac Type Severity Reaction Status Date / Time Penicillins Allergy Mild Rash Verified 05/03/20 16:48 Home Medications Medication Instructions Recorded Confirmed Type atorvastatin [Lipitor] 10 mg PO DAILY 05/03/20 05/03/20 History buprenorphine-naloxone [Suboxone] 2 film SUBLINGUAL BID 05/03/20 05/03/20 History clindamycin HCl 05/03/20 History clonidine HCl 0.1 mg PO TID 05/03/20 05/03/20 History diltiazem HCl 300 mg PO DAILY 05/03/20 05/03/20 History finasteride 5 mg PO DAILY 05/03/20 05/03/20 History metformin 1,000 mg PO BID 05/03/20 05/03/20 History pregabalin 100 mg PO BID 05/03/20 05/03/20 History testosterone cypionate 200 mg IM WEEKLY 05/03/20 05/03/20 History Laboratory Tests 05/05/20 05/05/20 05/05/20 07:32 11:22 16:23 WBC RBC Hgb Hct MCV MCH MCHC RDW Plt Count MPV Immature Gran % (Auto) Neut % (Auto) Lymph % (Auto) [place] % (Auto) Eos % (Auto) Baso % (Auto) Lymph # (Auto) [place] # (Auto) Eos # (Auto) Baso # (Auto) Abs Immat Gran (auto) Absolute Neuts (auto) Absolute Nucleated RBC Nucleated RBC % Sodium Potassium Chloride Carbon Dioxide Anion Gap BUN Creatinine Estim Creat Clear Calc Estimated GFR Glucose POC Capillary Glucose 204 mg/dl H mg/dl 155 mg/dl H mg/dl 281 mg/dl H mg/dl (65-105) (65-105) (65-105) Hemoglobin A1c Calcium Total Bilirubin AST ALT Alkaline Phosphatase Total Protein Albumin 05/05/20 05/06/20 05/06/20 20:55 04:33 04:33 WBC 9.1 K/mm3 K/mm3 (4.5-10.0) RBC 4.20 M/mm3 L M/mm3 (4.6-6.20) Hgb 12.3 g/dL L g/dL (14.0-18.0) Hct 36.4 % L % (42.0-52.0) MCV 86.7 fl fl (80-100) MCH 29.3 pg pg (26-34) MCHC 33.8 g/dl g/dl (32-36) RDW 14.2 % % (11.5-14.5) Plt Count 176 k/mm3 k/mm3 (150-375) MPV 10.8 fl H fl (7.4-10.4) Immature Gran % (Auto) 0.3 % % (0-0.5) Neut % (Auto) 54.0 % % (45.5-73.1) Lymph % (Auto) 27.8 % % (18.3-44.2) [place] % (Auto) 14.1 % H % (2.6-8.5) Eos % (Auto) 3.5 % % (0-4.4) Baso % (Auto) 0.3 % % (0.2-1.2) Lymph # (Auto) 2.52 K/mm3 K/mm3 (0.9-3.2) [place] # (Auto) 1.3 K/mm3 H K/mm3 (0.1-0.6) Eos # (Auto) 0.3 K/mm3 K/mm3 (0-0.3) Baso # (Auto) 0.0 K/mm3 K/mm3 (0.0-0.1) Abs Immat Gran (auto) 0.03 K/mm3 K/mm3 (0.00-0.031) Absolute Neuts (auto) 4.9 K/mm3 K/mm3 (1.3-6.7) Absolute Nucleated RBC 0.0 K/mm3 K/mm3 (0.0-0.012) Nucleated RBC % 0.0 % % (0.0-0.2) Sodium Potassium Chloride Carbon Dioxide Anion Gap BUN Creatinine Estim Creat Clear Calc Estimated GFR Glucose
[2020-05-06] MEDS: oxyCODONE/ACETAMINOPHEN 5-325 MG TABLET 1 TABLET PO ×4 (07:57→23:06)
--- NOTE | 2020-05-06 07:59 | WPDPN ---
Progress Note: A&P Assessment and Plan (1) Cellulitis of hand, left: Code(s): L03.114 - Cellulitis of left upper limb Status: Acute (2) Cat bite: Qualifiers: Encounter type: initial encounter Qualified Code(s): W55.01XA - Bitten by cat, initial encounter Code(s): W55.01XA - Bitten by cat, initial encounter Status: Acute (3) Diabetes: Onset Date: ~04/2020 Code(s): E11.9 - Type 2 diabetes mellitus without complications Status: Chronic (4) Abscess of tendon of hand: Code(s): M65.049 - Abscess of tendon sheath, unspecified hand Status: Acute Assessment and Plan: Pain persists. May have septic PIPJ. Remains on antibiotics. Additional Plan NPO. septic tenosynovitis and probable septic PIPJ. Anesthesia and Back Shoe Cutter notified. Could follow a 7:30 case. P. multocida on culture. WBC 9.1. POC elevated. Exam Narrative: Exam Narrative: PIP and proximal phalanx remain very tender, swollen. Objective Data Vital Signs Vital Signs: Vital Signs - 24 hr 05/05/20 09:45 05/05/20 14:00 05/05/20 18:00 Temperature 35.8 C L 36.7 C 36.6 C Pulse Rate 68 69 70 Respiratory Rate 18 18 18 Blood Pressure 152/64 H 121/70 127/69 Pulse Oximetry 99 96 99 05/05/20 21:56 05/06/20 01:17 05/06/20 05:41 Temperature 37.2 C 36.7 C Pulse Rate 68 77 64 Respiratory Rate 16 18 18 Blood Pressure 126/62 150/73 H Pulse Oximetry 97 99 98 05/06/20 05:45 Temperature 36.8 C Pulse Rate 79 Respiratory Rate 16 Blood Pressure 130/76 Pulse Oximetry 97 Intake/Output Intake/Output: Intake & Output 05/03/20 05/04/20 05/05/20 05/06/20 23:59 23:59 23:59 23:59 Intake Total 2350 2620 2630 350 Output Total 300 2150 800 850 Balance 2050 470 1830 -500 Meds/Results Medications: Active Medications Generic Name Dose Route Start Last Admin Trade Name Freq PRN Reason Stop Dose Admin Atorvastatin Calcium 10 mg 05/04/20 09:00 05/05/20 09:25 Lipitor PO 10 mg DAILY DENG Administration Clonidine HCl 0.1 mg 05/04/20 09:00 05/05/20 16:48 Catapres PO 0.1 mg TID DENG Administration Dextrose 12.5 gm 05/04/20 02:31 Dextrose 50% Syringe IV PUSH PRN PRN Hypoglycemia Protocol Diltiazem HCl 300 mg 05/04/20 09:00 05/05/20 09:25 Cardizem Cd PO 300 mg DAILY DENG Administration Fentanyl Citrate 25 mcg 05/06/20 07:22 Sublimaze IV PUSH Q2M PRN Pain Finasteride 5 mg 05/04/20 09:00 05/05/20 09:24 Proscar PO 5 mg DAILY DENG Administration Glucagon 1 mg 05/04/20 02:31 Glucagon For Inj IM PRN PRN Hypoglycemia Protocol Glucose 15 gm 05/04/20 02:31 Glutose 15 PO PRN PRN Hypoglycemia Protocol Hydromorphone HCl 0.25 mg 05/06/20 07:22 Dilaudid Inj IV PUSH Q5M PRN Pain Dextrose 1,000 mls @ 100 mls/hr 05/04/20 02:31 Dextrose 5% 1,000 Ml IVPB PRN PRN Hypoglycemia Protocol Piperacillin/Tazobactam/Dextrose 3.375 gm in 50 mls @ 100 mls/hr 05/04/20 12:00 05/06/20 05:37 Zosyn 3.375 Gm/D5w 50ml Pm IVPB Infused Q6H DENG Infusion Lactated Ringer's 1,000 mls @ 30 mls/hr 05/06/20 07:25 Lr - Lactated Ringers Iv IV CONT .Q24H DENG Lactated Ringer's 1,000 mls @ 30 mls/hr 05/06/20 07:25 Lr - Lactated Ringers Iv IV CONT .Q24H DENG Insulin Aspart 3 - 6 units 05/04/20 08:00 05/06/20 07:32 Novolog SUB-Q Not Given TIDWM [facility] Protocol Metformin HCl 1,000 mg 05/04/20 09:00 05/05/20 16:48 Glucophage PO 1,000 mg BID DENG Administration Morphine Sulfate 4 mg 05/03/20 15:20 05/06/20 07:23 Morphine Sulfate Inj IV PUSH 4 mg Q2H PRN Administration Pain Rated 7-10 Ondansetron HCl 4 mg 05/03/20 15:20 Zofran Inj IV PUSH Q4H PRN Nausea Ondansetron HCl 4 mg 05/03/20 18:04 Zofran Inj IV PUSH ONCE PRN Nausea Ondansetron HCl 4 mg 08/0
--- NOTE | 2020-05-06 08:22 | PC.NURSE ---
To OR per bed, IV SL. Report given to Niya
[2020-05-06] MEDS: LACTATED RINGERS 1,000 ML 30 ML IV CONT ×2 (08:28→10:30)
--- NOTE | 2020-05-06 09:06 | P.OPB_ITS ---
Procedure Note - Brief Procedure Note - Brief Date of procedure: 05/06/20 Pre-op diagnosis: Cellulitis left hand Abscess of left index finger. Post-op diagnosis: other (Septic tenosynovitis and septic PIP joint of left index finger.) Procedure performed: I&D of septic PIP joint and tendon sheath. Anesthesia: GLMA Surgeon: Alexis Martinez MD Passenger Interline Clerk: Razia Dawn Drains: Yes Packing: No Pathology: none sent Complications: No immediate complications Condition: stable Disposition: PACU
--- NOTE | 2020-05-06 09:24 | PM.IMPN ---
Progress Note: A&P Assessment and Plan (1) Cellulitis of hand, left: Code(s): L03.114 - Cellulitis of left upper limb Status: Acute Assessment and Plan: Secondary to acute cat bite. Underwent drainage of septic flexor tenosynovitis left index finger by Dr. Martinez 05/03, and plans to head to the OR this morning again. Appreciate Dr. Martinez's recommendations. Wound culture growing Pasteurella multocida; continue IV Zosyn. Blood cultures obtained after antibiotics were initiated and are pending with no growth to date. (2) Cat bite: Qualifiers: Encounter type: initial encounter Qualified Code(s): W55.01XA - Bitten by cat, initial encounter Code(s): W55.01XA - Bitten by cat, initial encounter Status: Acute Assessment and Plan: See above. (3) Diabetes: Onset Date: ~04/2020 Code(s): E11.9 - Type 2 diabetes mellitus without complications Status: Chronic Assessment and Plan: A1c is 7.2. Continue his home metformin. Montior with accu-cheks and cover with SSI. Reports he checks his blood sugars multiple times per week but not every day. We discussed the importance of tight glycemic control to optimize wound healing. (4) Hypertension: Code(s): I10 - Essential (primary) hypertension Status: Chronic Assessment and Plan: Continue his home regimen with diltiazem and clonidine. Monitor BPs and adjust treatment as needed. BP high this afternoon, added PRN IV hydralazine. (5) Chronic pain syndrome: Code(s): G89.4 - Chronic pain syndrome Status: Chronic Assessment and Plan: Issues after back surgery in 2007; follows with pain management and takes suboxone and lyrica. Hold suboxone while hospitalized. He remains on morphine and Percocet today for pain control. (6) RUTH (obstructive sleep apnea): Code(s): G47.33 - Obstructive sleep apnea (adult) (pediatric) Status: Chronic Assessment and Plan: CPAP. Subjective Date/time seen: 05/06/20 0730 Interval history: Mr. Cruz is a 54yo M admitted for cellulitis left hand/septic flexor tenosynovitis to left index secondary to acute cat bite, seen early this morning prior to heading to the OR. His is up ambulating in the room and notes that his left hand is throbbing. Slept okay last night wearing CPAP. He denies any chest pain, shortness of breath, or calf tenderness. He is seen in follow up with his , Christianne, at the bedside this morning. Review of Systems Review of Systems: Narrative: Twelve systems were reviewed with pertinent positives and negatives as per HPI. Exam Narrative: Exam Narrative: General: Well-developed, well-nourished male resting comfortably in no acute distress. HEENT: Normocephalic, EOMI, oral mucosa moist. Neck: Supple. Chest: Lungs clear to auscultation all noriega. Respirations are even and nonlabored. Tolerating room air. Heart: Heart rate and rhythm regular. Abdomen: Soft, nontender, nondistended, bowel sounds present. Ventral hernia palpated without pain. Extremities: Digits on the left hand are bit edematous, very tender to touch; range of motion left fingers is limited due to pain. Left 1st and 2nd digits/hand are wrapped in a gauze dressing with scant yellow drainage. Radial pulses are palpable bilaterally. Neurologic: No focal neurological deficits appreciated. Speech is clear. Objective Data Vital Signs Vital Signs: Last Vital Signs Temp 97.9 F 05/06/20 12:10 Pulse 65 05/06/20 12:10 Resp 22 H 05/06/20 12:10 BP 189/93 H 05/06/20 12:10 Pulse Ox 96 05/06/20 12:10 Intake/Output Intake/Output: Intake & Output 05/03/20 05/04/20 05/05/2002/20 23:59 23:59 23:59 23:59 Intake Total 2350 2620 2630 350 Output Total 300 2150 8
--- NOTE | 2020-05-06 10:46 | P.OP_ITS ---
Procedure Note - Detailed Date of procedure: 05/06/20 Pre-op diagnosis: Cellulitis left hand Abscess left index finger Post-op diagnosis: other (Septic PIP joint and septic tendon sheath.) Procedure performed: I&D of septic PIP joint and flexor tendon sheath left ind ex. Description of procedure: The patient's appropriate extremity was marked in the holding area. He was taken into the operating room and transferred from the bed to the operating table. He was placed supine on the operating table. Time-out was held and confirmed. He was given general anesthesia with an LMA. The extremity was prepped and draped in usual fashion. The tourniquet was used at 250 mmHg. The hand was prepped and draped in the usual fashion. The index finger is the digit that remains troublesome. All wounds were reopened on that digit including the dorsal wound over the metacarpophalangeal joint and the proximal interphalangeal joint. Nothing of note was identified over the metacarpophalangeal joint. Over the proximal interphalangeal joint there was bulging of the joint capsule. This was opened longitudinally between the central slip and the lateral band. Cloudy fluid was drained. Discolored tissue from beneath the extensor tendon was sharply debrided away over the distal half of the proximal phalanx. The joint was irrigated with about 200 milliliter of saline, some of that via a 16 gauge Angiocath. The hand was supinated. The 2 prior incisions on the palmar aspect were reopened. Cloudy fluid and some doyle tissue was seen surrounding the 2 tenotomy sites. The tendon appeared smooth and shiny. The tendon sheath appeared to have maintained its integrity. I was able to insert the angiocath inside the sheath and we irrigated with over 100 mls of saline through that. In addition to that the subcutaneous tissue was elevated off the tendon sheath from 1 incision to the other and that entire pathway was irrigated with a couple 100 mls of saline. No significant amount of tissue was excised from this area. Split segments of quarter-inch Hathaway drain were inserted on the palmar aspect from the proximal to the distal incision on top of the flexor tendon sheath. Both ends were sutured to skin. These wounds were not closed. A similar piece of Rubin was laid over the proximal interphalangeal joint dorsally and sutured to skin. Dressings to these 2 sites comprised tailored pieces of Mepilex Silver, 4 x 4 Kerlix sponges and Kerlix gauze. Prior to applying the dressing the tourniquet was released. Pressure was held on the digit for about 5 minutes a couple of bleeding sites were cauterized.There was no bleeding at the time of the dressing. 20 milliliter of 0.5% Marcaine plain were given as blocks to the dorsal and palmar aspects at the base of the index finger. The patient was awakened and transferred to the recovery room in stable condition. Surgeon: Alexis Martinez MD
--- NOTE | 2020-05-06 10:50 | SUR.PHASEI ---
BG 138
[2020-05-06 10:52] LABS: Glucose Point of Care 138 (65-105)
--- NOTE | 2020-05-06 12:00 | PC.NURSE ---
Returned from OR per bed. Report received from Niya.
[2020-05-06] MEDS: PREGABALIN 50 MG CAPSULE 100 MG PO ×2 (12:19→16:28)
[2020-05-06] MEDS: metFORMIN HCL 500 MG TABLET 1000 MG PO ×2 (12:20→16:28)
[2020-05-06] MEDS: FINASTERIDE 5 MG TABLET PO (12:20)
[2020-05-06] MEDS: ATORVASTATIN 10 MG TABLET PO (12:20)
[2020-05-06] MEDS: cloNIDine HCL 0.1 MG TABLET PO ×2 (12:20→16:28)
[2020-05-06 12:37] LABS: Glucose Point of Care 137 (65-105)
[2020-05-06 17:59] LABS: Glucose Point of Care 178 (65-105)
[2020-05-06 21:39] LABS: Glucose Point of Care 156 (65-105)
[2020-05-07] MEDS: MORPHINE SULFATE 4 MG/ML INJ IV PUSH ×5 (02:46→14:23)
[2020-05-07 05:31] LABS: Basophils Percent Auto 0.6 % (0.2-1.2); Eosinophils Absolute Auto 0.3 K/mm3 (0-0.3); Eosinophils Percent Auto 4.2 % (0-4.4); Hematocrit 36.5 % (42.0-52.0); Hemoglobin 12.3 g/dL (14.0-18.0); Immature Granulocyte Absolute 0.03 K/mm3 (0.00-0.031); Immature Granulocyte Percent A 0.4 % (0-0.5); Lymphocytes Absolute Auto 1.82 K/mm3 (0.9-3.2); Lymphocytes Percent Auto 25.3 % (18.3-44.2); Mean Corpuscular HGB Conc 33.7 g/dl (32-36); Mean Corpuscular Hemoglobin 29.3 pg (26-34); Mean Corpuscular Volume 86.9 fl (80-100); Mean Platelet Volume 10.7 fl (7.4-10.4); Monocytes Percent Auto 13.4 % (2.6-8.5); Neutrophils Percent Auto 56.1 % (45.5-73.1); Platelet Count Result 201 k/mm3 (150-375); Red Cell Distribution Width 13.9 % (11.5-14.5); White Blood Count 7.2 K/mm3 (4.5-10.0)
[2020-05-07 06:00] VITALS: BP 117/53; PULSE 60; RESP 20; TEMP 36.1; O2SAT 98
[2020-05-07] MEDS: oxyCODONE/ACETAMINOPHEN 5-325 MG TABLET 1 TABLET PO ×3 (06:14→17:04)
[2020-05-07] MEDS: metFORMIN HCL 500 MG TABLET 1000 MG PO ×2 (07:57→16:33)
[2020-05-07] MEDS: FINASTERIDE 5 MG TABLET PO (07:57)
[2020-05-07] MEDS: PREGABALIN 50 MG CAPSULE 100 MG PO ×2 (07:58→16:32)
[2020-05-07] MEDS: ATORVASTATIN 10 MG TABLET PO (07:58)
[2020-05-07] MEDS: cloNIDine HCL 0.1 MG TABLET PO ×3 (07:58→17:04)
[2020-05-07 08:21] LABS: Glucose Point of Care 158 (65-105)
--- NOTE | 2020-05-07 08:40 | WPDANESPN ---
Anes - Prog Note Post-Op Date/Time: 05/07/20 08:40 Cardiovascular status: normal Respiratory status: normal Airway patency: baseline Mental status: baseline Post-Op hydration status: normal Vital Signs: Last Vital Signs Temp 97.0 F L 05/07/20 06:00 Pulse 60 05/07/20 06:00 Resp 20 05/07/20 06:00 BP 117/53 L 05/07/20 06:00 Pulse Ox 98 05/07/20 06:00 I/O: Intake & Output 05/06/20 05/07/20 05/07/20 23:59 07:59 15:59 Intake Total 1580 990 Output Total 400 1500 Balance 1180 -510 Laboratory Tests 05/07/20 04:46 05/06/20 04:33 05/06/20 05/06/20 05/06/20 10:49 12:29 16:34 WBC RBC Hgb Hct MCV MCH MCHC RDW Plt Count MPV Immature Gran % (Auto) Neut % (Auto) Lymph % (Auto) [place] % (Auto) Eos % (Auto) Baso % (Auto) Lymph # (Auto) [place] # (Auto) Eos # (Auto) Baso # (Auto) Abs Immat Gran (auto) Absolute Neuts (auto) Absolute Nucleated RBC Nucleated RBC % POC Capillary Glucose 138 H 137 H 178 H 05/06/20 05/07/20 05/07/20 21:17 04:46 07:56 WBC 7.2 RBC 4.20 L Hgb 12.3 L Hct 36.5 L MCV 86.9 MCH 29.3 MCHC 33.7 RDW 13.9 Plt Count 201 MPV 10.7 H Immature Gran % (Auto) 0.4 Neut % (Auto) 56.1 Lymph % (Auto) 25.3 [place] % (Auto) 13.4 H Eos % (Auto) 4.2 Baso % (Auto) 0.6 Lymph # (Auto) 1.82 [place] # (Auto) 1.0 H Eos # (Auto) 0.3 Baso # (Auto) 0.0 Abs Immat Gran (auto) 0.03 Absolute Neuts (auto) 4.0 Absolute Nucleated RBC 0.0 Nucleated RBC % 0.0 POC Capillary Glucose 156 H 158 H Microbiology 05/03/20 18:38 Hand Left Anaerobic Culture - Preliminary 05/03/20 18:38 Hand Left Aerobic Culture - Final Pasteurella multocida Post-procedural complaints: none Patient Feedback: Patient satisfied with anesthetic care.
[2020-05-07 10:00] VITALS: BP 144/80; PULSE 67; RESP 16; TEMP 36.6; O2SAT 95
[2020-05-07 11:44] LABS: Glucose Point of Care 187 (65-105)
[2020-05-07 12:48] VITALS: BP 116/64; PULSE 65; RESP 16; O2SAT 95
[2020-05-07 14:00] VITALS: BP 120/61; PULSE 61; RESP 14; TEMP 36.6; O2SAT 98
--- NOTE | 2020-05-07 15:23 | PM.IMPN ---
Progress Note: A&P Assessment and Plan (1) Cellulitis of hand, left: Code(s): L03.114 - Cellulitis of left upper limb Status: Acute Assessment and Plan: Secondary to acute cat bite. Underwent drainage of septic flexor tenosynovitis left index finger by Dr. Martinez 05/03 and 05/06. Appreciate Dr. Martinez's recommendations. Wound culture growing Pasteurella multocida; continue IV Zosyn (day 4). Blood cultures obtained after antibiotics were initiated but are pending with no growth to date. (2) Cat bite: Qualifiers: Encounter type: initial encounter Qualified Code(s): W55.01XA - Bitten by cat, initial encounter Code(s): W55.01XA - Bitten by cat, initial encounter Status: Acute Assessment and Plan: See above. (3) Diabetes: Onset Date: ~04/2020 Code(s): E11.9 - Type 2 diabetes mellitus without complications Status: Chronic Assessment and Plan: A1c is 7.2. Continue his home metformin. Montior with accu-cheks and cover with SSI. Reports he checks his blood sugars multiple times per week but not every day. We discussed the importance of tight glycemic control to optimize wound healing. (4) Hypertension: Code(s): I10 - Essential (primary) hypertension Status: Chronic Assessment and Plan: Stable today, improved from yesterday. Continue his home regimen with diltiazem and clonidine. Monitor BPs and adjust treatment as needed. (5) Chronic pain syndrome: Code(s): G89.4 - Chronic pain syndrome Status: Chronic Assessment and Plan: Issues after back surgery in 2007; follows with pain management and takes suboxone and lyrica. Hold suboxone while hospitalized. (6) RUTH (obstructive sleep apnea): Code(s): G47.33 - Obstructive sleep apnea (adult) (pediatric) Status: Chronic Assessment and Plan: CPAP. Subjective Date/time seen: 05/07/20 1130 Interval history: Mr. Cruz is a 54yo M admitted for cellulitis left hand/septic flexor tenosynovitis to left index secondary to acute cat bite. He reports some improvement in the pain and range of motion of left fingers this morning compared to days prior. Otherwise offers no complaints. Review of Systems Review of Systems: Narrative: Twelve systems were reviewed with pertinent positives and negatives as per HPI. Exam Narrative: Exam Narrative: General: Male resting comfortably in bed no acute distress. HEENT: Normocephalic, EOMI, oral mucosa moist. Neck: Supple. Chest: Lungs clear to auscultation all noriega. Respirations are even and nonlabored. Tolerating room air. Heart: Heart rate and rhythm regular. Abdomen: Soft, nontender, nondistended, bowel sounds present. Ventral hernia palpated without pain. Extremities: Digits on the left hand are bit edematous, tender to touch; range of motion left fingers is limited due to pain but a little better than days prior. Left 1st and 2nd digits/hand are wrapped in a gauze dressing with scant yellow drainage. Radial pulses are palpable bilaterally. Neurologic: No focal neurological deficits appreciated. Speech is clear. Objective Data Vital Signs Vital Signs: Last Vital Signs Temp 97.9 F 05/07/20 14:00 Pulse 61 05/07/20 14:00 Resp 14 05/07/20 14:00 BP 120/61 05/07/20 14:00 Pulse Ox 98 05/07/20 14:00 Intake/Output Intake/Output: Intake & Output 05/04/20 05/05/20 05/06/20 05/07/20 23:59 23:59 23:59 23:59 Intake Total 2620 2630 2220 1280 Output Total 2150 800 1250 1500 Balance 470 1830 970 -220 Meds/Results Medications: Active Medications Generic Name Dose Route Start Last Admin Trade Name Freq PRN Reason Stop Dose Admin Atorvastatin Calcium 10 mg 05/04/20 09:00 05/07/20 07:58 Lipitor PO 10 m
[2020-05-07 16:30] LABS: Glucose Point of Care 212 (65-105)
--- NOTE | 2020-05-07 17:10 | PC.NURSE ---
Patient educated on insulin usage and blood sugar results. He is refusing insulin at this time. Kiana notified.
--- NOTE | 2020-05-07 18:50 | WPDPN ---
Progress Note: A&P Additional Plan 1. Continue IV Zosyn. 2. Dr minaya tomorrow.. 3, D/C IV Morphine. 4. D/c Percocet, switch to hydrocodone 7.5 Q 4-6 hrs. Exam Narrative: Exam Narrative: Tolerated dressing change better. Able to actively and passively move his PIPJ. without pain, limited by swelling. [place] thanh remain. Little erythema, no purulent drainage. WBC 7.2 POC remains elevated. Objective Data Vital Signs Vital Signs: Vital Signs - 24 hr 05/06/20 22:00 05/06/20 23:16 05/07/20 06:00 Temperature 36.8 C 36.1 C L Pulse Rate 67 60 Respiratory Rate 20 16 20 Blood Pressure 126/57 L 117/53 L Pulse Oximetry 99 98 05/07/20 10:00 05/07/20 12:48 05/07/20 14:00 Temperature 36.6 C 36.6 C Pulse Rate 67 65 61 Respiratory Rate 16 16 14 Blood Pressure 144/80 H 116/64 120/61 Pulse Oximetry 95 95 98 Intake/Output Intake/Output: Intake & Output 05/04/20 05/05/20 05/06/20 05/07/20 23:59 23:59 23:59 23:59 Intake Total 2620 2630 2220 1880 Output Total 2150 800 1250 2150 Balance 470 1830 970 -270 Meds/Results Medications: Active Medications Generic Name Dose Route Start Last Admin Trade Name Freq PRN Reason Stop Dose Admin Atorvastatin Calcium 10 mg 05/04/20 09:00 05/07/20 07:58 Lipitor PO 10 mg DAILY DENG Administration Clonidine HCl 0.1 mg 05/04/20 09:00 05/07/20 17:04 Catapres PO 0.1 mg TID DENG Administration Dextrose 12.5 gm 05/04/20 02:31 Dextrose 50% Syringe IV PUSH PRN PRN Hypoglycemia Protocol Diltiazem HCl 300 mg 05/04/20 09:00 05/07/20 07:57 Cardizem Cd PO 300 mg DAILY DENG Administration Finasteride 5 mg 05/04/20 09:00 05/07/20 07:57 Proscar PO 5 mg DAILY DENG Administration Glucagon 1 mg 05/04/20 02:31 Glucagon For Inj IM PRN PRN Hypoglycemia Protocol Glucose 15 gm 05/04/20 02:31 Glutose 15 PO PRN PRN Hypoglycemia Protocol Hydralazine HCl 10 mg 05/06/20 12:51 Apresoline Hcl Inj IV PUSH Q8H PRN Blood Pressure - High Dextrose 1,000 mls @ 100 mls/hr 05/04/20 02:31 Dextrose 5% 1,000 Ml IVPB PRN PRN Hypoglycemia Protocol Piperacillin/Tazobactam/Dextrose 3.375 gm in 50 mls @ 100 mls/hr 05/04/20 12:00 05/07/20 17:35 Zosyn 3.375 Gm/D5w 50ml Pm IVPB Infused Q6H DENG Infusion Insulin Aspart 3 - 6 units 05/04/20 08:00 05/07/20 16:31 Novolog SUB-Q Not Given [facility] Protocol Metformin HCl 1,000 mg 05/04/20 09:00 05/07/20 16:33 Glucophage PO 1,000 mg BID DENG Administration Morphine Sulfate 4 mg 05/03/20 15:20 05/07/20 14:23 Morphine Sulfate Inj IV PUSH 4 mg Q2H PRN Administration Pain Rated 7-10 Ondansetron HCl 4 mg 05/03/20 15:20 Zofran Inj IV PUSH Q4H PRN Nausea Ondansetron HCl 4 mg 05/03/20 18:04 Zofran Inj IV PUSH ONCE PRN Nausea Ondansetron HCl 4 mg 05/06/20 07:22 Zofran Inj IV PUSH ONCE PRN Nausea Oxycodone/Acetaminophen 1 tablet 05/03/20 20:16 05/07/20 17:04 Percocet 5-325 Mg PO 1 tablet Q4H PRN Administration Pain Rated 4-6 Pregabalin 100 mg 05/04/20 09:00 05/07/20 16:32 Lyrica PO 100 mg BID DENG Administration Radiology Results: ITS Impressions Hand X-Ray 05/03/20 14:09 IMPRESSION: 1. Soft tissue swelling of the second and third fingers without evidence of acute osseous abnormality. Labs Labs: Laboratory Results - last 24 hr 05/06/20 05/07/20 05/07/20 21:17 04:46 07:56 WBC 7.2 RBC 4.20 L Hgb 12.3 L Hct 36.5 L MCV 86.9 MCH 29.3 MCHC 33.7 RDW 13.9 Plt Count 201 MPV 10.7 H Immature Gran % (Auto) 0.4 Neut % (Auto) 56.1 Lymph % (Auto) 25.3 [place] % (Auto) 13.4 H Eos % (Auto) 4.2 Baso % (Auto) 0.6 Lymph # (Auto) 1.82 [place] # (Auto) 1.0 H Eos # (Auto) 0.3 Baso # (Auto) 0.0 Abs Immat Gran (auto) 0.03 Absolu
[2020-05-07 20:00] VITALS: BP 115/54; PULSE 64; RESP 20; TEMP 36.3; O2SAT 96
[2020-05-07 23:05] VITALS: PULSE 60; RESP 16; O2SAT 97
[2020-05-07 23:11] LABS: Glucose Point of Care 199 (65-105)
[2020-05-08] VITALS (7 sets, daily range): BP systolic 107–157; BP diastolic 51–75; PULSE 59–71; RESP 18–20; TEMP 36.4–37.2; O2SAT 96–99
[2020-05-08 08:07] LABS: Glucose Point of Care 145 (65-105)
[2020-05-08] MEDS: PREGABALIN 50 MG CAPSULE 100 MG PO ×2 (08:36→16:57)
[2020-05-08] MEDS: ATORVASTATIN 10 MG TABLET PO (08:36)
[2020-05-08] MEDS: metFORMIN HCL 500 MG TABLET 1000 MG PO ×2 (08:36→16:57)
[2020-05-08] MEDS: FINASTERIDE 5 MG TABLET PO (08:37)
[2020-05-08] MEDS: cloNIDine HCL 0.1 MG TABLET PO ×3 (08:37→16:57)
--- NOTE | 2020-05-08 09:45 | WPDPN ---
Progress Note: A&P Assessment and Plan (1) Abscess of tendon of hand: Code(s): M65.049 - Abscess of tendon sheath, unspecified hand Status: Acute Assessment and Plan: Appears to have responded well to acute treatment. May be discharged from my stand point. 1. Needs further antibiotics.Dr Reagan consult pending. 2. Needs daily dressing change with gauze Mepilex sponge. Does not need Mepilex Ag. 3. May shower. Wounds may get wet in the shower. 4. Needs F/U with Dr Martinez in 5-7 days. 5. Will need out patient OT which I well order. Objective Data Vital Signs Vital Signs: Vital Signs - 24 hr 05/07/20 10:00 05/07/20 12:48 05/07/20 14:00 Temperature 36.6 C 36.6 C Pulse Rate 67 65 61 Respiratory Rate 16 16 14 Blood Pressure 144/80 H 116/64 120/61 Pulse Oximetry 95 95 98 05/07/20 20:00 05/07/20 23:05 05/08/20 00:00 Temperature 36.3 C L 37.2 C Pulse Rate 64 60 69 Respiratory Rate 20 16 18 Blood Pressure 115/54 L 128/58 L Pulse Oximetry 96 97 98 05/08/20 01:36 05/08/20 06:00 Temperature 36.5 C Pulse Rate 62 59 L Respiratory Rate 20 Blood Pressure 132/61 Pulse Oximetry 98 97 Intake/Output Intake/Output: Intake & Output 05/05/20 05/06/20 05/07/20 05/08/20 23:59 23:59 23:59 23:59 Intake Total 2630 2220 1880 930 Output Total 800 1250 2150 600 Balance 1830 970 -270 330 Meds/Results Medications: Active Medications Generic Name Dose Route Start Last Admin Trade Name Freq PRN Reason Stop Dose Admin Hydrocodone Bitart/Acetaminophen 1 tab 05/07/20 19:01 05/08/20 05:28 [place] 7.5-325 Mg PO 1 tab Q4H PRN Administration Pain Rated 7-10 Atorvastatin Calcium 10 mg 05/04/20 09:00 05/08/20 08:36 Lipitor PO 10 mg DAILY DENG Administration Clonidine HCl 0.1 mg 05/04/20 09:00 05/08/20 08:37 Catapres PO 0.1 mg TID DENG Administration Dextrose 12.5 gm 05/04/20 02:31 Dextrose 50% Syringe IV PUSH PRN PRN Hypoglycemia Protocol Diltiazem HCl 300 mg 05/04/20 09:00 05/08/20 08:37 Cardizem Cd PO 300 mg DAILY DENG Administration Finasteride 5 mg 05/04/20 09:00 05/08/20 08:37 Proscar PO 5 mg DAILY DENG Administration Glucagon 1 mg 05/04/20 02:31 Glucagon For Inj IM PRN PRN Hypoglycemia Protocol Glucose 15 gm 05/04/20 02:31 Glutose 15 PO PRN PRN Hypoglycemia Protocol Hydralazine HCl 10 mg 05/06/20 12:51 Apresoline Hcl Inj IV PUSH Q8H PRN Blood Pressure - High Dextrose 1,000 mls @ 100 mls/hr 05/04/20 02:31 Dextrose 5% 1,000 Ml IVPB PRN PRN Hypoglycemia Protocol Piperacillin/Tazobactam/Dextrose 3.375 gm in 50 mls @ 100 mls/hr 05/04/20 12:00 05/08/20 05:26 Zosyn 3.375 Gm/D5w 50ml Pm IVPB 100 mls/hr Q6H DENG Administration Insulin Aspart 3 - 6 units 05/04/20 08:00 05/08/20 08:19 Novolog SUB-Q Not Given TIDWM [facility] Protocol Metformin HCl 1,000 mg 05/04/20 09:00 05/08/20 08:36 Glucophage PO 1,000 mg BID DENG Administration Ondansetron HCl 4 mg 05/03/20 15:20 Zofran Inj IV PUSH Q4H PRN Nausea Ondansetron HCl 4 mg 05/03/20 18:04 Zofran Inj IV PUSH ONCE PRN Nausea Ondansetron HCl 4 mg 05/06/20 07:22 Zofran Inj IV PUSH ONCE PRN Nausea Pregabalin 100 mg 05/04/20 09:00 05/08/20 08:36 Lyrica PO 100 mg BID DENG Administration Radiology Results: ITS Impressions Hand X-Ray 05/03/20 14:09 IMPRESSION: 1. Soft tissue swelling of the second and third fingers without evidence of acute osseous abnormality. Labs Labs: Laboratory Results - last 24 hr 05/07/20 05/07/20 05/07/20 11:38 16:27 21:11 POC Capillary Glucose 187 H 212 H 199 H 05/08/20 08:01 POC Capillary Glucose 145 H Quality VTE Prophylaxis VTE prophylaxis: mechanical ordered (SCDs)
[2020-05-08 11:53] LABS: Glucose Point of Care 206 (65-105)
[2020-05-08] MEDS: INSULIN ASPART (*BKC) 100 UNITS/ML SUB-Q (12:02)
--- NOTE | 2020-05-08 13:13 | WPDINFPN2 ---
Progress Note: A&P Assessment and Plan (1) Abscess of tendon of hand: Code(s): M65.049 - Abscess of tendon sheath, unspecified hand Status: Acute Assessment and Plan: Pasturella abscess and septic arthritis REC Ampicillin x 2 weeks more IV, PICC and discharge planning Subjective Date/time seen: 05/08/20 13:13 Objective Data Vital Signs Vital Signs: Vital Signs - 24 hr 05/07/20 14:00 05/07/20 20:00 05/07/20 23:05 Temperature 36.6 C 36.3 C L Pulse Rate 61 64 60 Respiratory Rate 14 20 16 Blood Pressure 120/61 115/54 L Pulse Oximetry 98 96 97 05/08/20 00:00 05/08/20 01:36 05/08/20 06:00 Temperature 37.2 C 36.5 C Pulse Rate 69 62 59 L Respiratory Rate 18 20 Blood Pressure 128/58 L 132/61 Pulse Oximetry 98 98 97 05/08/20 10:00 05/08/20 12:05 Temperature 36.4 C Pulse Rate 71 59 L Respiratory Rate 19 Blood Pressure 157/73 H 107/53 L Pulse Oximetry 96 Intake/Output Intake/Output: Intake & Output 05/05/20 05/06/20 05/07/20 05/08/20 23:59 23:59 23:59 23:59 Intake Total 2630 2220 1880 1030 Output Total 800 1250 2150 600 Balance 1830 970 -270 430 Meds/Results Medications: Active Medications Generic Name Dose Route Start Last Admin Trade Name Freq PRN Reason Stop Dose Admin Hydrocodone Bitart/Acetaminophen 1 tab 05/07/20 19:01 05/08/20 09:56 [place] 7.5-325 Mg PO 1 tab Q4H PRN Administration Pain Rated 7-10 Atorvastatin Calcium 10 mg 05/04/20 09:00 05/08/20 08:36 Lipitor PO 10 mg DAILY DENG Administration Clonidine HCl 0.1 mg 05/04/20 09:00 05/08/20 12:01 Catapres PO 0.1 mg TID DENG Administration Dextrose 12.5 gm 05/04/20 02:31 Dextrose 50% Syringe IV PUSH PRN PRN Hypoglycemia Protocol Diltiazem HCl 300 mg 05/04/20 09:00 05/08/20 08:37 Cardizem Cd PO 300 mg DAILY DENG Administration Finasteride 5 mg 05/04/20 09:00 05/08/20 08:37 Proscar PO 5 mg DAILY DENG Administration Glucagon 1 mg 05/04/20 02:31 Glucagon For Inj IM PRN PRN Hypoglycemia Protocol Glucose 15 gm 05/04/20 02:31 Glutose 15 PO PRN PRN Hypoglycemia Protocol Hydralazine HCl 10 mg 05/06/20 12:51 Apresoline Hcl Inj IV PUSH Q8H PRN Blood Pressure - High Dextrose 1,000 mls @ 100 mls/hr 05/04/20 02:31 Dextrose 5% 1,000 Ml IVPB PRN PRN Hypoglycemia Protocol Piperacillin/Tazobactam/Dextrose 3.375 gm in 50 mls @ 100 mls/hr 05/04/20 12:00 05/08/20 12:05 Zosyn 3.375 Gm/D5w 50ml Pm IVPB Infused Q6H DENG Infusion Insulin Aspart 3 - 6 units 05/04/20 08:00 05/08/20 12:02 Novolog SUB-Q 3 units TIDWM [facility] Administration Protocol Metformin HCl 1,000 mg 05/04/20 09:00 05/08/20 08:36 Glucophage PO 1,000 mg BID DENG Administration Ondansetron HCl 4 mg 05/03/20 15:20 Zofran Inj IV PUSH Q4H PRN Nausea Ondansetron HCl 4 mg 05/03/20 18:04 Zofran Inj IV PUSH ONCE PRN Nausea Ondansetron HCl 4 mg 05/06/20 07:22 Zofran Inj IV PUSH ONCE PRN Nausea Pregabalin 100 mg 05/04/20 09:00 05/08/20 08:36 Lyrica PO 100 mg BID DENG Administration Radiology Results: ITS Impressions Hand X-Ray 05/03/20 14:09 IMPRESSION: 1. Soft tissue swelling of the second and third fingers without evidence of acute osseous abnormality. Labs Labs: Laboratory Results - last 24 hr 05/07/20 05/07/20 05/08/20 16:27 21:11 08:01 POC Capillary Glucose 212 H 199 H 145 H 05/08/20 11:36 POC Capillary Glucose 206 H
--- NOTE | 2020-05-08 15:08 | PM.IMPN ---
Progress Note: A&P Assessment and Plan (1) Tenosynovitis of finger: Code(s): M65.9 - Synovitis and tenosynovitis, unspecified Status: Acute Assessment and Plan: Secondary to acute cat bite. Underwent drainage of septic flexor tenosynovitis left index finger by Dr. Martinez 05/03 and 05/06. Discussed case with Dr Martinez and appreciate his recommendations. Wound culture growing Pasteurella multocida; treated with 4 days IV Zosyn, Dr Reagan recommends switch to IV ampicillin to continue 2 weeks. Blood cultures obtained after antibiotics were initiated but are pending with no growth to date. Anticipate possible discharge tomorrow once PICC is placed. (2) Cat bite: Qualifiers: Encounter type: initial encounter Qualified Code(s): W55.01XA - Bitten by cat, initial encounter Code(s): W55.01XA - Bitten by cat, initial encounter Status: Acute Assessment and Plan: See above. (3) Diabetes: Onset Date: ~04/2020 Qualifiers: Diabetes mellitus type: type 2 Diabetes mellitus [employer] insulin use: without halfway use Diabetes mellitus complication status: without complication Qualified Code(s): E11.9 - Type 2 diabetes mellitus without complications Code(s): E11.9 - Type 2 diabetes mellitus without complications Status: Chronic Assessment and Plan: A1c is 7.2. Continue his home metformin. Montior with accu-cheks and cover with SSI. Reports he checks his blood sugars multiple times per week but not every day. He had been declining sliding scale insulin. We discussed his blood sugars at length today and I encouraged him to let RN administer the insulin. We discussed again the importance of tight glycemic control to optimize wound healing. (4) Hypertension: Qualifiers: Hypertension type: essential hypertension Qualified Code(s): I10 - Essential (primary) hypertension Code(s): I10 - Essential (primary) hypertension Status: Chronic Assessment and Plan: BPs reviewed 05/08, variable and intermittent elevations may be secondary to pain. Continue his home regimen with diltiazem and clonidine. Monitor BPs and adjust treatment as needed. (5) Chronic pain syndrome: Code(s): G89.4 - Chronic pain syndrome Status: Chronic Assessment and Plan: Issues after back surgery in 2007; follows with pain management and takes suboxone and lyrica. Hold suboxone while hospitalized. (6) RUTH (obstructive sleep apnea): Code(s): G47.33 - Obstructive sleep apnea (adult) (pediatric) Status: Chronic Assessment and Plan: CPAP. Subjective Date/time seen: 05/08/20 0915 Interval history: Mr. Cruz is a 54yo M admitted for cellulitis left hand/septic flexor tenosynovitis to left index secondary to acute cat bite. He reports improvement in the pain and range of motion of left fingers this morning compared to days prior. Otherwise offers no complaints. No chest pain or shortness of breath. Review of Systems Review of Systems: Narrative: Twelve systems were reviewed with pertinent positives and negatives as per HPI. Exam Narrative: Exam Narrative: General: Male resting comfortably in bed no acute distress. HEENT: Normocephalic, EOMI, oral mucosa moist. Neck: Supple. Chest: Lungs clear to auscultation all noriega. Respirations are even and nonlabored. Tolerating room air. Heart: Heart rate and rhythm regular. Abdomen: Soft, nontender, nondistended, bowel sounds present. Ventral hernia palpated without pain. Extremities: Digits on the left hand edematous, tender to touch; range of motion left fingers is limited due to pain but better than days prior. Left 1st and 2nd digits/hand are wrapped in a gauze dressing with scant yellow drainage. Radial
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
[2020-05-08] MEDS: AMPICILLIN 2 GM/NS 100 ML 2 GM/100 ML BAG IVPB ×2 (17:00→23:58)
[2020-05-08 17:04] LABS: Glucose Point of Care 124 (65-105)
[2020-05-08] MEDS: LOPERAMIDE HCL 2 MG CAPSULE PO (18:58)
[2020-05-08 21:44] LABS: Glucose Point of Care 268 (65-105)
[2020-05-09 02:19] VITALS: PULSE 68; O2SAT 95
[2020-05-09 05:30] LABS: Basophils Percent Auto 0.4 % (0.2-1.2); Eosinophils Absolute Auto 0.4 K/mm3 (0-0.3); Eosinophils Percent Auto 5.1 % (0-4.4); Hematocrit 40.1 % (42.0-52.0); Hemoglobin 13.3 g/dL (14.0-18.0); Immature Granulocyte Absolute 0.02 K/mm3 (0.00-0.031); Immature Granulocyte Percent A 0.3 % (0-0.5); Lymphocytes Absolute Auto 1.98 K/mm3 (0.9-3.2); Lymphocytes Percent Auto 28.9 % (18.3-44.2); Mean Corpuscular HGB Conc 33.2 g/dl (32-36); Mean Corpuscular Hemoglobin 28.5 pg (26-34); Mean Corpuscular Volume 86.1 fl (80-100); Mean Platelet Volume 10.1 fl (7.4-10.4); Monocytes Absolute Auto 0.7 K/mm3 (0.1-0.6); Monocytes Percent Auto 10.7 % (2.6-8.5); Neutrophils Absolute Auto 3.7 K/mm3 (1.3-6.7); Neutrophils Percent Auto 54.6 % (45.5-73.1); Platelet Count Result 235 k/mm3 (150-375); Red Blood Count 4.66 M/mm3 (4.6-6.20); Red Cell Distribution Width 13.8 % (11.5-14.5); White Blood Count 6.9 K/mm3 (4.5-10.0)
[2020-05-09 05:54] LABS: Blood Urea Nitrogen 10 mg/dL (9-20); Calcium 9.2 mg/dL (8.4-10.2); Carbon Dioxide 31 mmol/L (22-30); Chloride 101 mmol/L (98-107); Estimated CRCL calculation 113 ml/min; Estimated Glomerular Filt Rate > 60; Glucose 162 mg/dL (75-110); Magnesium 1.9 mg/dL (1.6-2.3); Sodium 138 mmol/L (137-145)
[2020-05-09] MEDS: AMPICILLIN 2 GM/NS 100 ML 2 GM/100 ML BAG IVPB ×3 (05:55→17:41)
[2020-05-09 06:00] VITALS: BP 117/73; PULSE 63; RESP 12; TEMP 36.6; O2SAT 98
[2020-05-09 07:40] LABS: Glucose Point of Care 132 (65-105)
[2020-05-09] MEDS: PREGABALIN 50 MG CAPSULE 100 MG PO ×2 (07:58→17:40)
[2020-05-09] MEDS: cloNIDine HCL 0.1 MG TABLET PO ×3 (07:58→17:40)
[2020-05-09] MEDS: LOPERAMIDE HCL 2 MG CAPSULE PO ×2 (07:58→18:47)
[2020-05-09] MEDS: metFORMIN HCL 500 MG TABLET 1000 MG PO ×2 (07:59→17:41)
[2020-05-09] MEDS: FINASTERIDE 5 MG TABLET PO (07:59)
[2020-05-09] MEDS: ATORVASTATIN 10 MG TABLET PO (07:59)
[2020-05-09] MEDS: LIDOCAINE HCL 1% PF INJ 5 ML VIAL INFILTRATE (08:30)
[2020-05-09 11:21] LABS: Glucose Point of Care 187 (65-105)
[2020-05-09] MEDS: CENTRAL LINE FLUSH 10 ML IV PUSH (13:10)
--- NOTE | 2020-05-09 13:30 | WPDINFPN2 ---
Progress Note: A&P Assessment and Plan (1) Abscess of tendon of hand: Code(s): M65.049 - Abscess of tendon sheath, unspecified hand Status: Acute Assessment and Plan: 1. Pasturella abscess and septic arthritis, slowly better 2. DM REC Ampicillin through 05/21, PICC in, discharge planning in process and discussed Subjective Date/time seen: 05/09/20 13:30 Interval history: ROM of fingers better, pain at rest is tolerable Exam Narrative: Exam Narrative: afebrile Const: General: no acute distress Resp: Effort & Inspection: normal respiratory effort Auscultation: clear to auscultation bilaterally Cardio: Rate: regular rate Rhythm: regular rhythm Heart sounds: no murmurs Skin: General skin exam: normal color and no rashes or lesions noted Extrem: Other: left hand with 1 + edema. No erythema. Tender index finger. ROM limited. normal ROM wrist. No redness proximally. No epitrochlear axillary nodes Objective Data Vital Signs Vital Signs: Vital Signs - 24 hr 05/08/20 14:00 05/08/20 20:00 05/09/20 02:19 Temperature 37.2 C 36.6 C Pulse Rate 63 67 68 Respiratory Rate 19 20 Blood Pressure 151/75 H 128/51 L Pulse Oximetry 98 99 95 05/09/20 06:00 Temperature 36.6 C Pulse Rate 63 Respiratory Rate 12 Blood Pressure 117/73 Pulse Oximetry 98 Intake/Output Intake/Output: Intake & Output 05/06/20 05/07/20 05/08/20 05/09/20 23:59 23:59 23:59 23:59 Intake Total 2220 1880 2510 930 Output Total 1250 2150 1875 950 Balance 970 -270 635 -20 Meds/Results Medications: Active Medications Generic Name Dose Route Start Last Admin Trade Name Freq PRN Reason Stop Dose Admin Hydrocodone Bitart/Acetaminophen 1 tab 05/07/20 19:01 05/09/20 10:09 [place] 7.5-325 Mg PO 1 tab Q4H PRN Administration Pain Rated 7-10 Atorvastatin Calcium 10 mg 05/04/20 09:00 05/09/20 07:59 Lipitor PO 10 mg DAILY DENG Administration Clonidine HCl 0.1 mg 05/04/20 09:00 05/09/20 12:19 Catapres PO 0.1 mg TID DENG Administration Dextrose 12.5 gm 05/04/20 02:31 Dextrose 50% Syringe IV PUSH PRN PRN Hypoglycemia Protocol Diltiazem HCl 300 mg 05/04/20 09:00 05/09/20 07:58 Cardizem Cd PO 300 mg DAILY DENG Administration Finasteride 5 mg 05/04/20 09:00 05/09/20 07:59 Proscar PO 5 mg DAILY DENG Administration Glucagon 1 mg 05/04/20 02:31 Glucagon For Inj IM PRN PRN Hypoglycemia Protocol Glucose 15 gm 05/04/20 02:31 Glutose 15 PO PRN PRN Hypoglycemia Protocol Hydralazine HCl 10 mg 05/06/20 12:51 Apresoline Hcl Inj IV PUSH Q8H PRN Blood Pressure - High Dextrose 1,000 mls @ 100 mls/hr 05/04/20 02:31 Dextrose 5% 1,000 Ml IVPB PRN PRN Hypoglycemia Protocol Ampicillin Sodium 2 gm in 100 mls @ 200 mls/hr 05/08/20 18:00 05/09/20 12:58 Ampicillin 2 Gm/Ns 100 Ml IVPB 05/22/20 23:59 Infused Q6HR DENG Infusion Insulin Aspart 3 - 6 units 05/04/20 08:00 05/09/20 11:39 Novolog SUB-Q Not Given [facility] Protocol Loperamide HCl 2 mg 05/08/20 18:39 05/09/20 07:58 Loperamide Hcl PO 2 mg PRN PRN Administration Diarrhea Metformin HCl 1,000 mg 05/04/20 09:00 05/09/20 07:59 Glucophage PO 1,000 mg BID DENG Administration Ondansetron HCl 4 mg 05/03/20 15:20 Zofran Inj IV PUSH Q4H PRN Nausea Ondansetron HCl 4 mg 05/03/20 18:04 Zofran Inj IV PUSH ONCE PRN Nausea Ondansetron HCl 4 mg 05/06/20 07:22 Zofran Inj IV PUSH ONCE PRN Nausea Pregabalin 100 mg 05/04/20 09:00 05/09/20 07:58 Lyrica PO 100 mg BID DENG Administration Sodium Chloride 10 ml 05/09/20 14:00 05/09/20 13:10 Central Line Flush IV PUSH 10 ml Q8HR DENG Administration Sodium Chloride 10 ml 05/09/20 09:17 Central Line Flush IV PUSH PRN PRN with TPN bag changes Sodium Chloride 20 ml
[2020-05-09 13:32] VITALS: PULSE 70; RESP 20; TEMP 36.6; O2SAT 98
[2020-05-09 14:10] VITALS: BP 183/83
[2020-05-09 16:24] LABS: Glucose Point of Care 289 (65-105)
--- NOTE | 2020-05-09 17:31 | PM.DS ---
DS: Admitting Diagnosis Admitting Diagnosis Admitting Diagnosis: Cellulitis of left upper limb DS: Discharge Diagnosis Discharge Diagnosis (1) Tenosynovitis of finger: Code(s): M65.9 - Synovitis and tenosynovitis, unspecified Status: Acute Assessment and Plan: Secondary to acute cat bite. Underwent drainage of septic flexor tenosynovitis left index finger by Dr. Martinez 05/03 and 05/06. Discussed case with Dr Martinez and appreciate his recommendations. Wound culture growing Pasteurella multocida; treated with 4 days IV Zosyn, Dr Reagan recommends switch to IV ampicillin to continue 2 weeks, until 05/21/2020. Blood cultures obtained after antibiotics were initiated but are pending with no growth to date. patient had his PICC line placed today and educated on how to give himself IV antibiotics and we have ordered ampicillin for 13 more days of administration. The patient understands and agrees the plan all questions answered. (2) Cat bite: Qualifiers: Encounter type: initial encounter Qualified Code(s): W55.01XA - Bitten by cat, initial encounter Code(s): W55.01XA - Bitten by cat, initial encounter Status: Acute Assessment and Plan: See above. (3) Diabetes: Onset Date: ~04/2020 Qualifiers: Diabetes mellitus complication status: without complication Diabetes mellitus halfway insulin use: without extermination inspector use Diabetes mellitus type: type 2 Qualified Code(s): E11.9 - Type 2 diabetes mellitus without complications Code(s): E11.9 - Type 2 diabetes mellitus without complications Status: Chronic Assessment and Plan: A1c is 7.2. Continue his home metformin. Montior with accu-cheks and cover with SSI. Reports he checks his blood sugars multiple times per week but not every day. (4) Hypertension: Qualifiers: Hypertension type: essential hypertension Qualified Code(s): I10 - Essential (primary) hypertension Code(s): I10 - Essential (primary) hypertension Status: Chronic Assessment and Plan: BPs reviewed 05/09, variable and intermittent elevations may be secondary to pain. Continue his home regimen with diltiazem and clonidine. (5) Chronic pain syndrome: Code(s): G89.4 - Chronic pain syndrome Status: Chronic Assessment and Plan: Issues after back surgery in 2007; follows with pain management and takes suboxone and lyrica. Hold suboxone while hospitalized. 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 (6) RUTH (obstructive sleep apnea): Code(s): G47.33 - Obstructive sleep apnea (adult) (pediatric) Status: Chronic Assessment and Plan: CPAP. DS: Summary Hospital Course Reason for hospitalization: patient is a 54-year-old man with a history of diabetes, and chronic back pain on Suboxone, who was leading his CT outside when it bit him in hand. He noticed increased redness, swelling, pain and decreased range of motion the next day and decided to come to the emergency room for further Evaluation. Initial vital signs showed temperature of 98.2?, blood pressure 200/81, heart rate 100 beats per minute, normal respiratory rate and oxygenation on room air. Initial labs showed normocytic anemia with hemoglobin of 13.8/hematocrit 40.4, hyponatremia at 1:35 a.m., glucose elevated at 212, CRP elevated at 4.2. Left hand x-ray showed soft tissue swelling of the 2nd and 3rd fingers without evidence of acute osseous abnormality. Wound culture was taken and the patient was admitted into the hospital for IV antibiotics and a consult to plastic surgery for further evaluation.
--- NOTE | 2020-05-09 19:10 | PC.NURSE ---
discharge instructions faxed to home health
--- NOTE | 2020-05-15 11:06 | PC.NURSE ---
Blood cx is negative
== END 2020-05-09 19:27 | disposition home health service (06) | DRG 501 ==
LOC: ANHED 15:32 → ANH2MED 16:06
PROVIDERS: Physician Assistant; Plastic Surgery; Admitting Provider Family Medicine; Emergency Provider Emergency Medicine; PCP Internal Medicine; Visit Provider Physician Assistant
PROC: 0L980ZX Drainage of Left Hand Tendon, Open Approach, Diagnostic (ICD-10-PCS; principal; 2020-05-03 18:30)
PROC: 0L980ZZ Drainage of Left Hand Tendon, Open Approach (ICD-10-PCS; principal; 2020-05-06 09:30)
DX: M65.142 Other infective (teno)synovitis, left hand (principal); E87.1 Hypo-osmolality and hyponatremia; M00.842 Arthritis due to other bacteria, left hand; L02.512 Cutaneous abscess of left hand; L03.114 Cellulitis of left upper limb; W55.01XA Bitten by cat, initial encounter; M65.042 Abscess of tendon sheath, left hand; B96.89 Other specified bacterial agents as the cause of diseases classified elsewhere; E11.9 Type 2 diabetes mellitus without complications; D64.9 Anemia, unspecified; I10 Essential (primary) hypertension; G89.4 Chronic pain syndrome; G47.33 Obstructive sleep apnea (adult) (pediatric); E78.5 Hyperlipidemia, unspecified; Z87.891 Personal history of nicotine dependence; E66.9 Obesity, unspecified; Z68.37 Body mass index [BMI] 37.0-37.9, adult; Z98.1 Arthrodesis status
CPT/HCPCS: 36415; 36569; 73130; 80048; 80053; 83036; 83735; 85025; 85652; 86140; 87040; 87070; 87075; 87077; 87205; 90471; 90715; 96365; 96368; 96375; 97165; 99285; A9270; C1751; G0378; J0131; J0290; J0330; J0696; J1170; J1200; J1815; J1885; J2250; J2270; J2405; J2543; J2704; J2765; J3010; J7030; J7120